=== PATIENT | male | born 1965 ===

== ENCOUNTER 2022-04-28 19:41 | Emergency (ER) | payer BC, SELFPAY ==
--- NOTE | 2022-04-28 20:19 | ED.NURSE ---
Left without being seen. DID NOT sign refusal of services form.
== END 2022-04-28 20:33 | disposition left against medical advice (07) ==
PROVIDERS: PCP Internal Medicine
DX: Z53.21 Procedure and treatment not carried out due to patient leaving prior to being seen by health care provider (principal)
CPT/HCPCS: 99281

== ENCOUNTER 2023-07-31 11:48 | Emergency (ER) | payer BC, SELFPAY ==
[2023-07-31 11:55] VITALS: BP 136/91; PULSE 100; RESP 16; TEMP 36.7; O2SAT 96; BMI 30.5
--- NOTE | 2023-07-31 12:20 | ED.PSYCH ---
HPI - Psych General Time Seen by Provider: 12:20 Date Seen: 07/31/23 Chief Complaint: Psychiatric Problem/Disorder Stated Complaint: Mental health Time Seen by Provider: 07/31/23 12:04 Source: patient and RN notes reviewed Mode of arrival: ambulatory Limitations: no limitations History of Present Illness HPI Narrative: This 58-year-old gentleman is ambulatory into the ED of his own accord with concern of worsening depression, goes by Laurel. He states he started to feel really dark today, thought of cutting again. He has a history of cutting his legs to feel pain per his report. He has not done this for a while, denies doing it today. His dropped him off here at the ER. He reports that she would not wait for him, just is not that kind of and they do not have that relationship. He admits that he has been feeling more depressed over the last month. Told nursing staff he does have bipolar depression. He states he has been on escitalopram 5 mg for years. He notes that he will be fine most the time and then just have these dips where he will feel worse. He does not have a definite suicidal plan. He notes his appetite is diminished and not eating and drinking as well, not sleeping as well. He does like red wine but states he does try to minimize use. He did have 2 drinks last night, had 2 more drinks around 4:00 a.m. today. He sees Dr. Willard at [facility], has a therapist Michael there as well whom he sees. He denies any prior suicide attempts, states he has never been hospitalized for his mental health. Denies any drug use. He notes when he starts feeling like this he will feel different physical symptoms. He has maybe been coughing a bit, note sometimes he will feel numbness tingling in fingertips of both hands. MD complaint: feels depressed Related Data Home Medications Medication Instructions Recorded Confirmed escitalopram oxalate 5 mg tablet 5 mg PO QAM 07/31/23 07/31/23 Previous Rx's Medication Instructions Recorded quetiapine 50 mg tablet (Seroquel) 50 mg PO QHS PRN insomnia #6 tabs 07/31/23 Allergies Allergy/AdvReac Type Severity Reaction Status Date / Time No Known Drug Allergies Allergy Verified 07/31/23 12:02 Review of Systems Status of ROS: Reports: 6 or more systems reviewed and unremarkable except as noted in History and below PFS PFS Social History Smoking Status: Unknown if ever smoked Exam Const: Vital Signs, click to edit/add: Vital Signs - 24 hr 07/31/23 11:55 07/31/23 17:02 Temperature 98.1 F Pulse Rate [Pulse Oximeter] 100 78 Respiratory Rate 16 Blood Pressure [Ri ght Upper Arm] 136/91 H 163/108 H Pulse Oximetry 96 97 Oxygen Delivery Me thod Room Air Room Air This 58-year-old male he is alert and interactive, has good eye contact but certainly has flat affect and depressed mood. He is tearful at times. Pupils are equal round, conjugate gaze. Symmetrical facial function, speech is normal. Neck is supple, no masses, no thyromegaly masses or nodules. Lungs are clear, good air entry, no wheezing or crackles. CV regular rate and rhythm, no murmur, normal S1-S2, no S3-S4. Abdomen is soft, nontender, nondistended, no organomegaly, no masses. He is ambulatory in the ED of his own accord, no lower extremity edema. No focal neurologic deficit noted. Documenting provider has reviewed patient's vital signs: yes Course Course ED Course: Reviewed with patient the process of telehealth evaluation, he does agree to this. We will get a chest x-ray as he has been coughing, do the triple viral swab. He notes no fevers. Will do full complement of labs in case he may require psychiatric hospitalization. Will await to the interview by the telehealth to help us assist in his final disposition. He is voluntary here right now. Reevaluation(s) Time of Reevaluation #1: 14:55 Reevaluation #1: Nursing staff reports that patient is feeling more anxious. Will try oral hydroxyzine to see if this helps him. Nursing staff did offer food and drink which patient declined. He reportedly has completed his interview with telehealth, will call them to see if they have a report ready for us. Time of Reevaluation #2: 16:10 Reevaluation #2: Reviewed his alcohol level, elevated liver enzymes which are very likely from alcoholic hepatitis. This would suggest he has maybe been drinking more than what he has led onto. He is seemingly clinically sober, have had lengthy conversation with him. We did discuss detox, he denies any history of alcoholic withdrawal seizures, no history of alcohol withdrawal. He does note every time he drinks, the next day will feel more jittery and anxious. He endorses sleep being a big issue. He realizes the alcohol makes him feel better is a just dulls how he is feeling. We reviewed that it is not really helpful, likely is worsening his mental health. He is feeling anxious right now, did agree to give him 1 mg oral Ativan. Did discuss sleep aid with him. It sounds as if he has not responded to trazodone in the past. Will try some Seroquel, just dispense a few tablets. He is not felt to need hospitalization by telehealth, he is not endorsing suicidality, homicidality, agree that he is not holdable. Time of Reevaluation #3: 17:11 Reevaluation #3: Nursing staff reported that patient stated when they were going over the discharge summary and they went over if he was feeling increasingly suicidal to return, he made a statement that what if he was feeling that now. I did go back and talk to him. He was causing himself to be very shaky, reviewed with him that he needed to settle down, IA could absolutely tell that he was causing himself to have upper extremity shaking. When I commented on this, he stopped moving his upper extremities. Reviewed with him that we were at a decision point and that if he was not feeling safe to go home, we needed to call telehealth back and look for inpatient psychiatric hospitalization. He does not want to do that, did tell me that he is just afraid to go home as he started feeling quite dark this morning. Reviewed with him that he needed to be the 1 to tell me if he was safer not to go home. We did discuss that if he was feeling worse or increasingly suicidal, the plan was for him to always return for further medical evaluation. He stated he wanted to go home, his was out front waiting for him. I asked him what his plan was if he started to feel worse at home, he stated he was going to come back. I had talked to him before about detox as well, he did not want to do that either. Thus, the plan either needs to be that he tries to go home with the plan as outlined or if he is truly not feeling safe, needs to go inpatient psychiatry. He is not endorsing any active suicidal plan, is just fearful to return home as that he might feel worse. He ultimately is going to do a trial of returning home, if he has increasing suicidal thoughts or worsening depression, he will return here. Consultations Consultation #1: Reviewed with Jose from [employer]. He will interview the patient and contact us back when he has done the interview. Time: 13:15 Consultation #2: Spoke with Jose from [employer]. Patient reported for about 15 years his mood has been up and down but typically can get through it. He reviewed that it had been episodic. Patient does typically exercise and run. Since June 27 he has been more sad and lethargic. He did not think that he would hurt himself. He last cut about 12 years ago and did not think that would be a current issue. Not sleeping was a big problem, would awaken after few hours. He had only been on citalopram 5 mg daily and as Jose and I discussed, if he really did have bipolar disorder, do wonder about this medicine, certainly wonder if it is just depression that this might not be a therapeutic dosage for him. He did not feel that he needed inpatient nor did the patient after they discussed this. He did not feel safe to go home tonight though and Jose discussed with him observation in our hospital overnight and help with sleep. Reviewed with Jose that we do not do this, will check with our hospitalist but they are not psychiatry and he otherwise doesn't have a need for hospitalization here. Did get him outpatient psychiatry appointment for this Tuesday. Did subsequently review with our hospitalist Dr. Castillo and he doesn't accept this patient, doesn't see need for services here that our hospital can provide. Time: 15:06 Vital Signs Vital signs: Initial Vital Signs Temperature 98.1 F 07/31/23 11:55 Temperature Source Temporal Artery Scan 07/31/23 11:55 Pulse Rate 100 07/31/23 11:55 Respiratory Rate 16 07/31/23 11:55 Blood Pressure 136/91 H 07/31/23 11:55 Blood Pressure Mean 106 H 07/31/23 11:55 Blood Pressure Position Sitting 07/31/23 11:55 Pulse Oximetry 96 07/31/23 11:55 Oxygen Delivery Method Room Air 07/31/23 11:55 Vital Signs Temperature 98.1 F 07/31/23 11:55 Pulse Rate 100 07/31/23 11:55 Respiratory Rate 16 07/31/23 11:55 Blood Pressure 136/91 H 07/31/23 11:55 Pulse Oximetry 96 07/31/23 11:55 Oxygen Delivery Method Room Air 07/31/23 11:55 Temperature 98.1 F 07/31/23 11:55 Pulse Rate 78 07/31/23 17:02 Respiratory Rate 16 07/31/23 11:55 Blood Pressure 163/108 H 07/31/23 17:02 Pulse Oximetry 97 07/31/23 17:02 Oxygen Delivery Method Room Air 07/31/23 17:02 Medications Administered Medications: Discontinued Medications Generic Name Dose Route Start Last Admin Trade Name Freq PRN Reason Stop Dose Admin Hydroxyzine Pamoate 50 mg 07/31/23 14:55 07/31/23 14:58 Hydroxyzine Pamoate 25 Mg Capsule PO 07/31/23 14:56 50 mg ONCE ONE Administration Lorazepam 1 mg 07/31/23 16:53 07/31/23 16:58 Lorazepam 1 Mg Tablet PO 07/31/23 16:54 1 mg ONCE ONE Administration MDM - Psych Lab Data Attestation: I reviewed the patient's lab results. Labs: Lab Results 07/31/23 07/31/23 Range/Units 12:45 12:55 WBC 3.59 L (4.50-11.00) K/uL RBC 4.51 (4.30-5.90) m/uL Hgb 14.9 (13.5-17.5) gm/dL Hct 44.3 (37.0-53.0) % MCV 98 (80-100) fL MCH 33 (26-34) pg MCHC 34 (32-36) gm/dL RDW Coeff of Bettina 13.9 (11.5-15.5) % Plt Count 144 (140-440) K/uL Neut % (Auto) 51.3 (42.0-72.0) % Lymph % (Auto) 31.2 (20-44) % Schleicher % (Auto) 12.8 H (0.0-11.0) % Eos % (Auto) 3.1 (0.0-7.0) % Baso % (Auto) 0.8 (0.0-3.0) % Neut # (Auto) 1.80 (1.7-7.0) K/uL Lymph # (Auto) 1.10 (0.90-2.90) K/uL Schleicher # (Auto) 0.50 (0.00-0.90) K/UL Eos # (Auto) 0.10 (0.00-0.50) K/uL Baso # (Auto) 0.00 (0.00-0.30) K/uL Abs Immat Gran (auto) 0.00 (0.00-0.30) K/uL Imm/Tot Granulo (auto) 0.8 % Sodium 137 (135-149) mmol/L Potassium 4.3 (3.6-5.1) mmol/L Chloride 104 (96-114) mmol/L Carbon Dioxide 15 L (20-32) mmol/L Anion Gap 18 H (7-15) mEq/L BUN 8 (7-30) mg/dL Creatinine 0.6 (0.5-1.5) mg/dL Estimated Creat Clear 127.00 Estimated GFR 113 ml/min Glucose 106 (60-115) mg/dL Calcium 9.2 (8.4-10.6) mg/dL Total Bilirubin 0.8 (0.1-1.5) mg/dL AST 281 H (12-35) U/L ALT 302 H (4-50) U/L Alkaline Phosphatase 82 (40-150) U/L Total Protein 7.5 (6.0-8.3) g/dL Albumin 4.4 (3.3-5.0) g/dL TSH 2.600 (0.270-4.200) uIU/mL Salicylates < 1.0 L (1.0-10) mg/dL Acetaminophen < 10.0 L (10.0-30.0) ug/mL Ethyl Alcohol 0.11 H (0.01-0.03) % SARS-CoV-2 (PCR) Negative SARS-CoV-2 (Negative) Influenza Type A (PCR) Negative PCR FLU A (Negative) Influenza Type B (PCR) Negative PCR FLU B (Negative) RSV (PCR) Negative PCR RSV (Negative) Imaging Data Chest x-ray: Attestation: I have reviewed the pertinent imaging results. My impression: I see no acute pathology on my preliminary review of this portable chest x-ray. Radiologist's impression: Patient: TIFFANY BARAHONA Facility:?[facility] Patient ID:?[id number] Site Patient ID:?[id number]. Site :?[id number] Study:?XRay Chest PORTABLE-07/31/2023 12:48:11 PM Ordering Physician:Luma Cifuentes Final Report: INDICATION: Cough. TECHNIQUE: Chest 1 views. COMPARISON: None. FINDINGS: Cardiovasculature and mediastinum: Heart size and vasculature are normal in caliber and appearance. Lungs and pleural spaces: Lungs are clear. No sign of infiltrate or mass. No sign of pleural effusion. No pneumothorax. Bones and soft tissues: No significant findings. IMPRESSION: No acute or significant findings. Dictated by Jose Cheng MD @ 07/31/2023 1:18:21 PM (Electronic Signature) Discharge Plan Discharge Clinical Impression: Alcohol intoxication, Depression Patient Disposition: Home, Self-Care Condition: Stable Instructions: Depression (ED), Alcohol Use Disorder (ED) Additional Instructions: Need to stop alcohol use, this certainly is not helping your depression. Can try the Seroquel as prescribed to help with sleep. You need to keep your scheduled psychiatry appointment that was made through telehealth. I also recommend that you need to get back in clinic within the next week, need to have your liver enzymes rechecked as they are showing changes consistent with alcoholic hepatitis. Continue on the escitalopram as you have been prescribed. As far as your depression, if you feel you are worsening, do feel that your becoming suicidal, you need to seek emergent re-evaluation. Activity Level: Activity as Tolerated Discharge Diet: Regular Prescriptions: New quetiapine [Seroquel] 50 mg tablet 50 mg PO QHS PRN (Reason: insomnia) Qty: 6 0RF No Action escitalopram oxalate 5 mg tablet 5 mg PO QAM Follow Up/Referrals: Bam Roldan MD [Primary Care Provider] - Stand Alone Forms: [employer] Info Instructions
--- NOTE | 2023-07-31 12:34 | CRLHL7_ITS ---
For Patients: As a result of the Century Cures Act, medical imaging exams and procedure reports are released immediately into your electronic medical record. You may view this report before your referring provider. If you have questions, please contact your health care provider. INDICATION: Cough. TECHNIQUE: Chest 1 views. COMPARISON: None. FINDINGS: Cardiovasculature and mediastinum: Heart size and vasculature are normal in caliber and appearance. Lungs and pleural spaces: Lungs are clear. No sign of infiltrate or mass. No sign of pleural effusion. No pneumothorax. Bones and soft tissues: No significant findings. IMPRESSION: No acute or significant findings. Dictated by Jose Cheng MD @ 07/31/2023 1:18:21 PM (Electronically Signed)
[2023-07-31 13:06] LABS: Basophils Percent Auto 0.8 % (0.0-3.0); Eosinophils Percent Auto 3.1 % (0.0-7.0); Hematocrit 44.3 % (37.0-53.0); Hemoglobin* 14.9 gm/dL (13.5-17.5); Immature Granulocytes Pct Auto 0.8 %; Lymphocytes Percent Auto 31.2 % (20-44); Mean Corpuscular HGB Conc 34 gm/dL (32-36); Mean Corpuscular Hemoglobin 33 pg (26-34); Mean Corpuscular Volume 98 fL (80-100); Monocytes Percent Auto 12.8 % (0.0-11.0); Neutrophils Percent Auto 51.3 % (42.0-72.0); Platelet Count* 144 K/uL (140-440); RDW Coefficient of Variation % 13.9 % (11.5-15.5); Red Blood Count 4.51 m/uL (4.30-5.90); White Blood Count* 3.59 K/uL (4.50-11.00)
[2023-07-31 13:08] LABS: Slide Review Reflex No
[2023-07-31 13:44] LABS: PCR FLU A Negative PCR FLU A (Negative); PCR FLU B Negative PCR FLU B (Negative); PCR RSV Negative PCR RSV (Negative); SARS PCR* Negative SARS-CoV-2 (Negative)
[2023-07-31] MEDS: hydrOXYzine pamoate 25 MG CAPSULE 50 MG PO (14:58)
[2023-07-31 15:23] LABS: Albumin* 4.4 g/dL (3.3-5.0); Chloride* 104 mmol/L (96-114)
[2023-07-31 15:24] LABS: Potassium* 4.3 mmol/L (3.6-5.1); Sodium* 137 mmol/L (135-149)
[2023-07-31 15:26] LABS: Alanine Aminotransferase* 302 U/L (4-50); Alkaline Phosphatase* 82 U/L (40-150); Anion Gap 18 mEq/L (7-15); Aspartate Amino Transferase* 281 U/L (12-35); Bilirubin Total* 0.8 mg/dL (0.1-1.5); Blood Urea Nitrogen* 8 mg/dL (7-30); Calcium* 9.2 mg/dL (8.4-10.6); Carbon Dioxide* 15 mmol/L (20-32); Creatinine* 0.6 mg/dL (0.5-1.5); Estimated Glomerular Filt Rate 113 ml/min; Glucose* 106 mg/dL (60-115); Total Protein* 7.5 g/dL (6.0-8.3)
[2023-07-31 15:27] LABS: Acetaminophen* < 10.0 ug/mL (10.0-30.0); Ethanol* 0.11 % (0.01-0.03); Salicylate* < 1.0 mg/dL (1.0-10)
--- NOTE | 2023-07-31 16:51 | ED.NURSE ---
Pt signed DEC safety plan, pt provided with copy of this plan.
[2023-07-31] MEDS: LORazepam 1 MG TABLET PO (16:58)
[2023-07-31 17:02] VITALS: BP 163/108; PULSE 78; O2SAT 97
--- NOTE | 2023-07-31 17:11 | ED.NURSE ---
DC instructions reviewed with pt, pt instructed to come back for reevaluation if he had concerns about his safety or suicidal thoughts. Pt then stated, What if I'm having those thoughts right now? Pt then stated that he was unsure if he would be safe going home. MD powell, in room to speak with pt for several minutes. After speaking with MD, pt did state that he was safe and would be willing to go home. Pt informed several times by health science writer and MD that he should come back to the ER or call 911 if he feels unsafe at home; pt agreeable to this. Pt signed and acknowledged DC instructions before departing.
== END 2023-07-31 17:16 | disposition home or self-care (01) ==
PROVIDERS: Emergency Provider Family Medicine; PCP Internal Medicine
DX: F10.129 Alcohol abuse with intoxication, unspecified (principal); F32.A Depression, unspecified
CPT/HCPCS: 36415; 71045; 80053; 80143; 80179; 80306; 82077; 84443; 85025; 87631; 99284; A9270

== ENCOUNTER 2024-07-10 12:13 | Outpatient (CLI) | payer BC, SELFPAY | END 2024-07-10 12:14 | disposition home or self-care (01) | LOC: AMB 07-25 16:50 | PROVIDERS: PCP Internal Medicine; Visit Provider Emergency Medicine | DX: R56.9 Unspecified convulsions (principal) | CPT/HCPCS: A0425; A0427 ==

== ENCOUNTER 2024-07-10 12:42 | Emergency (ER) | payer BC, SELFPAY ==
[2024-07-10 12:51] VITALS: BP 153/102; PULSE 87; RESP 20; TEMP 37; O2SAT 94; BMI 32.3
--- NOTE | 2024-07-10 12:57 | ED.GENADULT ---
HPI - General Adult General Date Seen: 07/10/24 Chief complaint: Altered Mental Status Stated complaint: Seizure/Anxiety Time Seen by Provider: 07/10/24 12:45 History of Present Illness HPI narrative: Patient is a 59-year-old male brought in by EMS. Medics tell me that bystanders had called 911 because he was in the [place] just sitting in his car and not moving. They thought maybe he had had a stroke or something along those lines. They were reports of maybe some shaking but medics say on their arrival he was awake and not postictal. No reported loss of bowel or bladder control, tongue laceration that sort of thing. No history of seizures. He says he does not remember exactly what happened. When I asked why he is here he said that he has just been struggling with his depression for the past 6 weeks. He says sometimes it is better controlled but he has been having a lot of problems, feeling very down. He denies being suicidal, says he just wishes he could sleep. He does take Lexapro, he also takes Seroquel at night. He has a therapist, he says that who manages his medicines. Of note he has shown as being on 5 mg of Lexapro, which is a fairly small dose. He denies tobacco or drug use. He says he drinks socially. He has been seen here once before, in last July, and there was some suspicion of more excessive alcohol use. He denies that today. Related Data Home Medications ?Medication ?Instructions ?Recorded ?Confirmed escitalopram oxalate 5 mg tablet 5 mg PO QAM 07/31/23 07/10/24 Previous Rx's ?Medication ?Instructions ?Recorded quetiapine 50 mg tablet (Seroquel) 50 mg PO QHS PRN insomnia #6 tabs 07/31/23 Allergies Allergy/AdvReac Type Severity Reaction Status Date / Time No Known Drug Allergies Allergy Verified 05/22/24 15:15 Review of Systems Status of ROS: Reports: 10 or more systems reviewed and unremarkable except as noted in History and below [facility] Medical History Hyperlipidemia ?E78.5 - Hyperlipidemia, unspecified (ICD-10) Social History Smoking Status: Unknown if ever smoked How often do you have a drink containing alcohol: never AUDIT-C Alcohol total score: 0 Non-prescribed substance use: denies use Exam Narrative: Exam Narrative: Vital signs reviewed In general, alert, nontoxic Head: Normocephalic, atraumatic. Eyes: Sclera clear. Pupils equal and reactive. ENT: Mucous membranes moist. Neck: Supple without adenopathy. Heart: Regular rate and rhythm without murmur. Lungs: Clear. No increased work of breathing, crackles or wheezes. Abdomen: Soft, nontender to palpation. Extremities: Well perfused, pulses intact. No significant edema. Neurologic: Alert, conversant. Speech fluent, face symmetric. Moves all extremities equally. Skin: Warm, dry well perfused. Affect: Flat. Const: Vital Signs, click to edit/add: Vital Signs - 24 hr 07/10/24 12:51 07/10/24 13:24 Temperature 98.6 F Pulse Rate 87 Pulse Rate [Pulse Oximeter] 87 Respiratory Rate 20 Blood Pressure 146/97 H Blood Pressure [Ri ght Upper Arm] 153/102 H Pulse Oximetry 94 98 Oxygen Delivery Me thod Room Air Course Course ED Course: Will have him talk with telehealth, check some basic labs and give him a little bit of fluid here as he says he feels a little weak and shaky. It is unclear what this episode was earlier. I am less suspicious of true seizure given the absence of a postictal period. Patient spoke with Janusz, I had a lengthy conversation with him as well. He is a little more clear on things now. He tells me that this event happened after he had gone to his therapist's office. He found that there was a wait list, he was not able to really talk with anyone and this led to anxiety. He says when he gets anxious he gets shaky and he decided that he should not drive because he was shaky. It does not sound like there was any loss of consciousness. He says that this happens to him sometimes. As the anxiety has improved this shakiness is improved, though I note as we start to talk he seems to get shaky again. We reviewed his medications more carefully. He is no longer on Lexapro, he was switched to Wellbutrin last year. He says he was started on a low-dose but now is up to 450 mg a day. He also has hydroxyzine for anxiety which he takes as needed. He is no longer on Seroquel, he reports that it did not help with sleep any way. He says nothing he has ever tried for sleep really helps. He had had some stressors at work, he thinks that that contributed to this episode of depression that started 6 weeks ago. He said that he missed a therapy appointment and a psychiatry appointment because he just could not get himself to leave the house. He does feel like he is starting to improve, he says that he would not have been able to leave the house today if he was not feeling a little better. Continues to denies suicidal thoughts. He did reach out to his psychiatrist and his therapist today, has not heard back from them and I have encouraged him to touch back with them tomorrow if he does not hear from them. I think it is reasonable to let him go home. Laboratory evaluation here was negative. He feels comfortable with that. He knows that he can return any time if things are getting worse. Vital Signs Vital signs: Initial Vital Signs Temperature 98.6 F 07/10/24 12:51 Temperature Source Temporal Artery Scan 07/10/24 12:51 Pulse Rate 87 07/10/24 12:51 Respiratory Rate 07/10/24 12:51 Blood Pressure 153/102 H 07/10/24 12:51 Blood Pressure Mean 119 H 07/10/24 12:51 Pulse Oximetry 94 07/10/24 12:51 Oxygen Delivery Method Room Air 07/10/24 12:51 Vital Signs Temperature 98.6 F 07/10/24 12:51 Pulse Rate 87 07/10/24 12:51 Respiratory Rate 07/10/24 12:51 Blood Pressure 153/102 H 07/10/24 12:51 Pulse Oximetry 94 07/10/24 12:51 Oxygen Delivery Method Room Air 07/10/24 12:51 Temperature 98.6 F 07/10/24 12:51 Pulse Rate 87 07/10/24 13:24 Respiratory Rate 20 07/10/24 12:51 Blood Pressure 146/97 H 07/10/24 13:24 Pulse Oximetry 98 07/10/24 13:24 Oxygen Delivery Method Room Air 07/10/24 12:51 Medications Administered Medications: Discontinued Medications Generic Name Dose Route Start Last Admin Trade Name Freq PRN Reason Stop Dose Admin Sodium Chloride 500 mls @ 500 mls/hr 07/10/24 12:52 07/10/24 13:49 0.9 % Sodium Chloride 500 Ml IV 07/10/24 13:51 Infused .Q1H ONE Infusion Medical Decision Making Lab Data Lab results reviewed: Yes I reviewed the patient's lab results Labs: Lab Results 07/10/24 Range/Units 13:20 WBC 4.73 (4.50-11.00) K/uL RBC 4.61 (4.30-5.90) m/uL Hgb 15.2 (13.5-17.5) gm/dL Hct 44.2 (37.0-53.0) % MCV 96 (80-100) fL MCH 33 (26-34) pg MCHC 34 (32-36) gm/dL RDW Coeff of Bettina 13.6 (11.5-15.5) % Plt Count 199 (140-440) K/uL Neut % (Auto) 82.9 H (42.0-72.0) % Lymph % (Auto) 9.3 L (20-44) % Mcminn % (Auto) 6.6 (0.0-11.0) % Eos % (Auto) 0.2 (0.0-7.0) % Baso % (Auto) 0.6 (0.0-3.0) % Neut # (Auto) 3.90 (1.7-7.0) K/uL Lymph # (Auto) 0.40 L (0.90-2.90) K/uL Mcminn # (Auto) 0.30 (0.00-0.90) K/UL Eos # (Auto) 0.01 (0.00-0.50) K/uL Baso # (Auto) 0.03 (0.00-0.30) K/uL Abs Immat Gran (auto) 0.02 (0.00-0.30) K/uL Imm/Tot Granulo (auto) 0.4 % Sodium 137 (135-149) mmol/L Potassium 3.8 (3.6-5.1) mmol/L Chloride 99 (96-114) mmol/L Carbon Dioxide 25 (20-32) mmol/L Anion Gap 13 (7-15) mEq/L BUN 9 (7-30) mg/dL Creatinine 0.8 (0.5-1.5) mg/dL Estimated Creat Clear 90.83 Estimated GFR 103 ml/min Glucose 198 H (60-115) mg/dL Calcium 9.8 (8.4-10.6) mg/dL Total Bilirubin 1.6 H (0.1-1.5) mg/dL Direct Bilirubin 0.6 H (0.0-0.5) mg/dL AST 60 H (12-35) U/L ALT 72 H (4-50) U/L Alkaline Phosphatase 80 (40-150) U/L Total Protein 8.1 (6.0-8.3) g/dL Albumin 4.9 (3.3-5.0) g/dL Salicylates < 1.0 L (1.0-10) mg/dL Acetaminophen < 10.0 L (10.0-30.0) ug/mL Ethyl Alcohol < 0.00 L (0.01-0.03) % Discharge Plan Discharge Clinical Impression: Depression Patient Disposition: Home, Self-Care Condition: Improved Instructions: Depression (ED) Additional Instructions: Return if needed for more severe symptoms. As discussed, make sure that you touch base with your psychiatrist and therapist, take medications as prescribed. Prescriptions: No Action escitalopram oxalate 5 mg tablet 5 mg PO QAM quetiapine [Seroquel] 50 mg tablet 50 mg PO QHS PRN (Reason: insomnia) Qty: 6 0RF Follow Up/Referrals: aBm Roldan MD [Primary Care Provider] - Stand Alone Forms: [employer] Info Instructions
[2024-07-10] MEDS: 0.9 % SODIUM CHLORIDE 500 ML 500 ML IV (13:23)
[2024-07-10 13:24] VITALS: BP 146/97; PULSE 87; O2SAT 98
[2024-07-10 13:35] LABS: Basophils Absolute Auto 0.03 K/uL (0.00-0.30); Basophils Percent Auto 0.6 % (0.0-3.0); Eosinophils Absolute Auto 0.01 K/uL (0.00-0.50); Eosinophils Percent Auto 0.2 % (0.0-7.0); Hematocrit 44.2 % (37.0-53.0); Hemoglobin* 15.2 gm/dL (13.5-17.5); Immature Granulocytes Abs Auto 0.02 K/uL (0.00-0.30); Immature Granulocytes Pct Auto 0.4 %; Lymphocytes Percent Auto 9.3 % (20-44); Mean Corpuscular HGB Conc 34 gm/dL (32-36); Mean Corpuscular Hemoglobin 33 pg (26-34); Mean Corpuscular Volume 96 fL (80-100); Monocytes Percent Auto 6.6 % (0.0-11.0); Neutrophils Percent Auto 82.9 % (42.0-72.0); Platelet Count* 199 K/uL (140-440); RDW Coefficient of Variation % 13.6 % (11.5-15.5); Red Blood Count 4.61 m/uL (4.30-5.90); White Blood Count* 4.73 K/uL (4.50-11.00)
[2024-07-10 13:38] LABS: Slide Review Reflex No
[2024-07-10 13:48] LABS: Chloride* 99 mmol/L (96-114); Potassium* 3.8 mmol/L (3.6-5.1); Sodium* 137 mmol/L (135-149)
[2024-07-10 13:49] LABS: Albumin* 4.9 g/dL (3.3-5.0)
[2024-07-10 13:51] LABS: Anion Gap 13 mEq/L (7-15); Blood Urea Nitrogen* 9 mg/dL (7-30); Calcium* 9.8 mg/dL (8.4-10.6); Carbon Dioxide* 25 mmol/L (20-32); Creatinine* 0.8 mg/dL (0.5-1.5); Est. Creatinine Clearance* 90.83; Estimated Glomerular Filt Rate 103 ml/min; Glucose* 198 mg/dL (60-115)
[2024-07-10 13:52] LABS: Alanine Aminotransferase* 72 U/L (4-50); Alkaline Phosphatase* 80 U/L (40-150); Aspartate Amino Transferase* 60 U/L (12-35); Bilirubin Direct* 0.6 mg/dL (0.0-0.5); Bilirubin Total* 1.6 mg/dL (0.1-1.5); Total Protein* 8.1 g/dL (6.0-8.3)
[2024-07-10 14:06] LABS: Acetaminophen* < 10.0 ug/mL (10.0-30.0); Salicylate* < 1.0 mg/dL (1.0-10)
[2024-07-10 14:09] LABS: Ethanol* < 0.00 % (0.01-0.03)
== END 2024-07-10 15:40 | disposition home or self-care (01) ==
LOC: ED 14:45
PROVIDERS: Emergency Provider Emergency Medicine; PCP Internal Medicine
DX: F32.A Depression, unspecified (principal)
CPT/HCPCS: 36415; 80048; 80076; 80143; 80179; 80306; 81001; 82077; 85025; 99283; 99284; J7030

== ENCOUNTER 2024-09-07 18:45 | Outpatient (CLI) | payer BC, SELFPAY | END 2024-09-07 18:46 | disposition home or self-care (01) | LOC: AMB 09-10 09:16 | PROVIDERS: PCP Internal Medicine; Visit Provider Family Medicine | DX: R45.851 Suicidal ideations (principal) | CPT/HCPCS: A0425; A0427 ==

== ENCOUNTER 2024-09-07 19:10 | Emergency (ER) | payer BC, SELFPAY ==
--- OUTSIDE RECORDS SUMMARY | 2024-09-07 19:12 | XMS_ITS | Clinical Summary ---
Author Organization [employer] s & [facility] Address [address] [place] [address] Care Team Providers Care Health Information Provider Name Role Phone Kenneth Willard MD Primary Care Provider [phone]- [phone] Allergies No known active allergies Medications QUEtiapine (SEROQUEL) 50 mg tabletIndicatio ns:Insomnia, idiopathic TAKE 1 TABLET BY MOUTH AT BEDTIME NEEDED FOR INSOMNIA 20 Tablet 08/05/2023 Active buPROPion (WELLBUTRIN XL) 150 mg Extended-Releas e tablet Take 300 mg by mouth once daily. 08/03/2023 Active escitalopram oxalate (LEXAPRO) 5 mg tabletIndicatio ns:Anxiety,Saritha r depressive disorder, recurrent, severe without psychotic features (HC) Take 1 Tablet (5 mg) by mouth every morning. 90 Tablet 3 09/02/2023 Active SUMAtriptan (IMITREX) 50 mg tabletIndicatio ns:Migraine syndrome TAKE 1 TABLET (50 MG) BY MOUTH 2 TIMES DAILY IF NEEDED FOR MIGRAINE. GIVE AT MINIMUM 2HRS APART. MAX DOSE: 100MG PER 24HRS. 10 Tablet 05/01/2024 Active Active Problems Problem Noted Date Diagnosed Date Primary osteoarthritis of right knee 07/27/2024 Degenerative tear of medial meniscus, right 06/29 Adenomatous colon polyp 07/20/2017 Overview (11/11/2022): Colonoscopy 06/2017 polyp, repeat in 5 years Colonoscopy 10/2022 diverticulosis, repeat in 7 years Hyperlipidemia 05/18/2013 Major depressive disorder, single episode, unspe cified 04/19/2013 Encounters Date Type Department Care Team Description 09/05/2024 3:15 PM CDT Office Visit [facility] [address] [place] [phone] Sara Patten, PhD, LP Failed Appointment 08/28/2024 Telephone [facility] [address] [facility] [place] [address] Andrae Arciniega MD Pre-Visit Intake 08/02/2024 Telephone [facility] [address] [place] [phone] Sara Patten, PhD, LP Form (Request ) 07/30/2024 Telephone [facility] [address] [place] [address] Andrae Arciniega MD 07/27/2024 11:05 AM BOILER OR ENGINE OPERATOR Ancillary Procedure [facility] [address] [place] [address] 07/27/2024 11:00 AM BOILER OR ENGINE OPERATOR Office Visit [facility] [address] [place] [address] Blane Royal MD Consult (right knee) 07/27/2024 Telephone [facility] [address] [place] [phone] Sara Patten, PhD, LP Form (Working Short Term Disability Claim) 07/27/2024 Travel 07/17/2024 Telephone [facility] [address] [place] [phone] Sara Patten, PhD, LP Letter For Work 07/16/2024 12:00 PM BOILER OR ENGINE OPERATOR Office Visit [facility] [address] [place] [phone] Sara Patten, PhD, LP Individual Therapy 07/16/2024 Telephone [facility] [address] [place] [phone] Sara Patten, PhD, Error-please disregard 07/16/2024 Travel from Last 3 Months Immunizations Immunization Administration Dates Next Due Tdap 04/20/2013 Family History Medical History Relation Name Comments Diabetes Brother Diabetes Father Heart Disease Father [place] in early 60 's Diabetes Sister Cancer-colon No Family History Cancer-prostate No Family History Relation Name Status Comments Brother Father Sister Social History Tobacco Use Types Packs/Day Years Used Date Smoking Tobacco: Never Smokeless Tobacco: Never Tobacco Cessation:Counseling Given: Yes Alcohol Use Standard Drinks/Week Comments Not Currently 4 (1 standard drink = 0.6 oz pur e alcohol) 4 drinks per week PHQ-2 Answer Date Recorded PHQ-2 TOTAL SCORE 3 09/02/2023 Social Connections Answer Date Recorded Do you often feel lonely or isolated from those around you? 4 09/02/2023 Financial Resource Strain Answer Date R ecorded Difficulty of Paying Living Expenses 3 09/02/2023 Difficulty of Paying Living Expenses Not on file 09/02/2023 Food Insecurity Answer Date Recorded Do you worry your food will run out before you are able to buy more? 1 09/02/2023 Transportation Needs Answer Date Record ed Does lack of transportation keep you from medica l appointments? 1 09/02/2023 Does lack of transportation keep you from work, meetings or getting things that you need? 1 09/02/2023 Housing Stability Answer Date Recorded What is your housing situation today? 1 09/02/2023 Utilities Answer Date Recorded Do you have trouble paying f or utilities (for example, heat, electricity, water, phone)? 1 09/02/2023 Sex and Gender Information Value Date Recorded Sex Assigned at Not on file Legal Sex Male 5:27 AM BOILER OR ENGINE OPERATOR Gender Identity Not on file Sexual Orientation Not on file Obstetrics History Last Filed Vital Signs Vital Sign Reading Time Taken Comments Blood Pressure 158/95 12/23/2023 1:14 PM CDT Pulse 68 12/23/2023 1:14 PM CDT Temperature 36.8 C (98.3 F) 07/25/2020 4:24 PM BOILER OR ENGINE OPERATOR Respiratory Rate 12 11/11/2022 9:45 AM CDT Oxygen Saturation 99% 12/23/2023 1:14 PM CDT Inhaled Oxygen Concentration - - Weight 95.3 kg (210 lb) 12/23/2023 1:14 PM CDT Height 167.6 cm (5' 6) 12/23/2023 1:14 PM CDT Body Mass Index 33.89 12/23/2023 1:14 PM CDT Plan of Treatment Health Maintenance Due Date Last Done Comments Pneumococcal series for age 50+ (1 of 1 - PCV) 2016 Zoster (shingles) series for age 50+ (1 of 2) 2016 Tetanus booster 04/20/2023 04/20/2013 COVID-19 vaccine series (1 - 2023- season) 2024 Influenza Vaccine (#1) 2024 Depression screening for age 12+ 09/01/2024 09/02/2023, 08/05/2023, 08/04/2023, Additional history exists BMI (ht and wt on same day) for age 18+ 12/22/2024 12/23/2023, 09/02/2023, 08/09/2022, Additional history exists Lipids for age 45-75 08/31/2028 09/01/2023, 08/09/2022, 08/07/2021, Additional history exists Colonoscopy through age 75 11/11/202911/11, 11/11/2022, 11/11/2022, Additional history exists Tdap Completed 04/20/2013 Hepatitis C screening for ag e 18-79 Completed 06/05/2018 HIV for age 15-65 Completed 08/09/2022 Procedures Procedure Name Priority Date/Time Associated Diagnosis Comments XR KNEE 1 VIEW RIGHT Routine 07/27/2024 10:59 AM BOILER OR ENGINE OPERATOR Right knee pain, unspecified chronicity LIPID PANEL W REFLEX MEASURED LDL Routine 09/01/2023 9:57 AM BOILER OR ENGINE OPERATOR Hyperlipidemia, unspecified hyperlipidemia type COLONOSCOPY SCREENING Routine 11/11/2022 8:38 AM CDT History of colon polyps LC HIV-1/O/2, 4TH GENERATION Routine 08/09/2022 10:38 AM BOILER OR ENGINE OPERATOR Screening for HIV (human immunodeficiency virus) ANTI HCV Routine 06/05/2018 10:55 AM BOILER OR ENGINE OPERATOR Elevated liver enzymes from Last 3 Months or Most Recently Relevant to Health Maintenance Results * XR KNEE 1 VIEW RIGHT (07/27/2024 10:59 AM BOILER OR ENGINE OPERATOR) Anatomical Region Laterality Modality KNEE R Computed Radiogr aphy 07/27/2024 11:0 7 AM BOILER OR ENGINE OPERATOR Narrative 07/27/2024 11:07 AM BOILER OR ENGINE OPERATOR For Patients: As a result of the Cures Act, medical imaging exams and procedure reports are released immediately into your electronic medical record. You may view this report before your referring provider. If you have questions, please contact your health care provider. INDICATION: Chronic right knee pain. TECHNIQUE: Single Conrad view of the right knee. COMPARISON: 12/23/2023. FINDINGS: Medial compartment narrowing, widening of the lateral compartment with varus angulation. Mild osteoarthritic spurring at the articular margins. No subarticular lytic bone destruction or architectural distortion. Dictated by Davina Borrero MD @ 07/27/2024 11:07:53 AM (Electronically Signed) Procedure Note Sanket Borrero MD - 07/27/2024 For Patients: As a result of the Cures Act, medical imagingexams and procedure reports are released immediately into your electronicmedical record. You may view this report before your referring provider.If you have questions, please contact your health care provider. INDICATION: Chronic right knee pain. TECHNIQUE: Single Conrad view of the right knee. COMPARISON: 12/23/2023. FINDINGS: Medial compartment narrowing, widening of the lateral compartment withvarus angulation. Mild osteoarthritic spurring at the articular margins.No subarticular lytic bone destruction or architectural distortion. Dictated by Davina Borrero MD @ 07/27/2024 11:07:53 AM (Electronically Signed) Blane Royal MD GENERAL IMAGING Final Resul t * (ABNORMAL) LIPID PANEL W REFLEX MEASURED LDL (09/01/2023 9:57 AM BOILER OR ENGINE OPERATOR) CHOLESTEROL,TOTAL 246(H) 100 - 199 mg/dL 09/01/2023 6:30 PM BOILER OR ENGINE OPERATOR [facility] Comment: Cholesterol, Total Reference Ranges Desirable <200 mg/dL Borderline 200-239 mg/dL High >=240 mg/dL TRIGLYCERIDES 42 <150 mg/dL 09/01/2023 6:30 PM BOILER OR ENGINE OPERATOR [facility] HDL CHOLESTEROL 70 >40 mg/dL 6:30 PM BOILER OR ENGINE OPERATOR [facility] NON-HDL CHOLESTEROL 176(H) <145 mg/dl 09/01/2023 6:30 PM BOILER OR ENGINE OPERATOR [facility] CHOL/HDL RATIO 3.51 <4.50 09/01/2023 6:30 PM BOILER OR ENGINE OPERATOR [facility] LDL CHOLESTEROL 168(H) <=130 mg/dL 09/01/2023 6:30 PM BOILER OR ENGINE OPERATOR [facility] VLDL CHOLESTEROL 8 <=30 mg/dL 09/01/2023 6:30 PM BOILER OR ENGINE OPERATOR [facility] PROVIDER ORDERED STATUS RANDOM 09/01/2023 6:30 PM BOILER OR ENGINE OPERATOR [facility] Blood BLOOD SPECIMEN / Unknown Venipuncture / Unknown 09/01/2023 9:57 AM BOILER OR ENGINE OPERATOR 09/01/2023 9:59 AM BOILER OR ENGINE OPERATOR us Kenneth Willard MD CHEMISTRY Final Resu lt [facility] [address] [place] [address], [place] * COLONOSCOPY (11/11/2022 8:49 AM CDT) 11/11/2022 8:49 AM CDT Narrative Transcriptions Pablo Trujillo MD - 11/11/2022 9:34 AM CDT Patient Name: Ivan Jeffers Procedure Date: 11/11/2022 Gender: Male Date of : 1965 Admit Type: Outpatient Procedure: Colonoscopy Proceduralist: Pablo Trujillo MD , Nishi Chance (Nurse), Yana oCrdova (Nurse) Referring MD: Kenneth Willard Indications/Pre-Op Diagnosis: High risk colon cancer surveillance:Personal history of adenoma less than 10 mm in size Medications: Fentanyl 100 micrograms IV, Midazolam 2 mgIV, The level of sedation administered wasmoderate Procedure Description: The patient had risks, benefits and alternatives explained to andgave informed consent. The patient had a stable cardiopulmonary status and judged an adequate candidate for conscious sedation. The [id number] was passed through the anus and advanced to the cecum, identified by appendiceal orifice and ileocecal valve. Thecolonoscopy was performed without difficulty. The patient tolerated the procedure well. The quality of the bowel preparation was good. The ileocecal valve, appendiceal orifice, and rectum were photographed. Complications: No immediate complications. Estimated Blood Loss & Specimen: Estimated blood loss: none. Specimen collected - None Findings: The perianal and digital rectal examinations were normal. Scattered small-mouthed diverticula were found in the sigmoidcolon. The exam was otherwise without abnormality on direct and retroflexion views. Impressions/Post-Op Diagnosis: - Diverticulosis in the sigmoid colon. - The examination was otherwise normal on direct and retroflexionviews. - No specimens collected. Recommendation: - Patient has a contact number available for emergencies. The signsand symptoms of potential delayed complications were discussed with the patient. Return to normal activities tomorrow. Written discharge instructions were provided to the patient. - Resume previous diet. - Continue present medications. - Repeat colonoscopy in 7 years for surveillance. Moderate Sedation: A time out was performed before the procedure. Moderate (conscious) sedation was administered by the endoscopy nurse and supervised bythe endoscopist. The following parameters were monitored: oxygensaturation, heart rate, blood pressure, EKG, CO2, respiratory rate, adequacy of pulmonary ventilation and reponse to care. Please refer to the patient's medical record flowsheets and nursing notes for moderate sedation details. Total physician intraservice time was 13 minutes. Pablo Trujillo MD 11/11/2022 9:34:18 AM This report has been signed electronically. Note Initiated On: 11/11/2022 8:49 AM Procedure Code(s): --- Professional --- 03422, Colonoscopy, flexible; diagnostic, including collection of specimen(s) bybrushing or washing, when performed (separateprocedure) Diagnosis Code(s): --- Professional --- Z86.010, Personal history of colonicpolyps K57.30, Diverticulosis of large intestine without perforation or abscess withoutbleeding CPT copyright 2021 [employer]. All rights reserved. The codes documented in this report are preliminary and upon pairer substandard reviewmay be revised to meet current compliance requirements. Scope In: 9:17:24 AM Scope Withdrawal Time 0 hours 6 minutes 37 seconds Scope Out: 9:28:14 AM us Pablo Trujillo MD PROCEDURE ORD Final Res ult * LC HIV-1/O/2, 4TH GENERATION (08/09/2022 10:38 AM BOILER OR ENGINE OPERATOR) HIV Scr 4th Gen Non Reactive Non Reactive 08/11/2022 10:06 PM [facility] Comment: HIV Negative HIV-1/HIV-2 antibodies and HIV-1 p24 antigen were NOT detected. There is no laboratory evidence of HIV infection. Blood BLOOD SPECIMEN / Unknown Venipuncture / Unknown 08/09/2022 10:38 AM BOILER OR ENGINE OPERATOR 08/09/2022 10:40 AM BOILER OR ENGINE OPERATOR Narrative [facility] - 08/11/2022 10:06 PM BOILER OR ENGINE OPERATOR Performed at: [address] [place] [id number] Tile Professional: Hernán Rodriguez MD, Phone: [phone] us Kenneth Willard MD LABORATORY Final Resu lt [facility] [address] [place] [address], * ANTI HCV (06/05/2018 10:55 AM BOILER OR ENGINE OPERATOR) HEPATITIS C ANTIBODY Non-React lazarus Non-React lazarus 06/06/2018 2:46 PM BOILER OR ENGINE OPERATOR [facility] Comment:Antibodies to HCV no t detected; does not exclude the possibility of exposure to HCV. Blood BLOOD SPECIMEN / Unknown Venipuncture / Unknown 06/05/2018 10:55 AM BOILER OR ENGINE OPERATOR 06/05/2018 10:55 AM BOILER OR ENGINE OPERATOR us Kenneth Willard MD SEND OUTS Final Resu lt [facility] [address] [place] [address], from Last 3 Months or Most Recently Relevant to Health Maintenance Insurance [facility] Care Teams Health Information Provider Relationship Specialty Start Date End Date Kenneth [place] [place] [address] PCP - General Family Practice 05/13/14
[2024-09-07 19:19] VITALS: BP 140/86; PULSE 89; RESP 16; TEMP 36.7; O2SAT 94
--- OUTSIDE RECORDS SUMMARY | 2024-09-07 19:43 | XMS_ITS | Clinical Summary ---
Author Organization [employer] [facility] [employer] [facility] Address [address] [place] [address] Care Team Providers Care Rn Resource Nurse Name Role Phone Kenneth Willard MD Primary Care Provider +1- [phone] Allergies No known active allergies Medications QUEtiapine [...] Description 09/05/2024 3:15 PM CDT Office Visit [facility] [address] [place] [phone] Sara Patten, PhD, LP Failed Appointment 08/28/2024 Telephone [facility] [address] [place] [address] Andrae Arciniega MD Pre-Visit Intake 08/02/2024 Telephone [facility] [address] [place] [phone] Sara Patten, PhD, LP Form (Request ) 07/30/2024 Telephone [facility] [address] [place] [address] Andrae Arciniega MD 07/27/2024 11:05 AM DATA COLLECTION TECHNICIAN Ancillary Procedure [facility] [address] [place] [address] 07/27/2024 11:00 AM DATA COLLECTION TECHNICIAN Office Visit [facility] [address] [facility] [place] [address] Blane Royal MD Consult (right knee) 07/27/2024 Telephone [facility] [address] [place] [phone] Sara Patten, PhD, LP Form (Working Short Term Disability Claim) 07/27/2024 Travel 07/17/2024 Telephone [facility] [address] [place] [phone] Sara Patten, PhD, LP Letter For Work 07/16/2024 12:00 PM DATA COLLECTION TECHNICIAN Office Visit [facility] [address] [place] [phone] Sara Patten, PhD, LP Individual Therapy 07/16/2024 Telephone [facility] [address] [place] [phone] Sara Patten, PhD, Error-please disregard 07/16/2024 Travel from Last 3 Months Immunizations Immunization Administration Dates Next Due Tdap 04/20/2013 Family History Medical History Relation Name Comments Diabetes Brother Diabetes Father Heart Disease Father [place] in early 60 's Diabetes Sister Cancer-colon [...] on file Legal Sex Male 5:27 AM DATA COLLECTION TECHNICIAN Gender Identity Not on file Sexual Orientation Not on file Obstetrics History Last Filed Vital Signs Vital Sign Reading Time Taken Comments Blood Pressure 158/95 12/23/2023 1:14 PM CDT Pulse 68 12/23/2023 1:14 PM CDT Temperature 36.8 C (98.3 F) 07/25/2020 4:24 PM DATA COLLECTION TECHNICIAN Respiratory Rate 12 11/11/2022 9:45 AM CDT [...] 1 VIEW RIGHT Routine 07/27/2024 10:59 AM DATA COLLECTION TECHNICIAN Right knee pain, unspecified chronicity LIPID PANEL W REFLEX MEASURED LDL Routine 09/01/2023 9:57 AM DATA COLLECTION TECHNICIAN Hyperlipidemia, unspecified hyperlipidemia type COLONOSCOPY SCREENING Routine 11/11/2022 8:38 AM CDT History of colon polyps LC HIV-1/O/2, 4TH GENERATION Routine 08/09/2022 10:38 AM DATA COLLECTION TECHNICIAN Screening for HIV (human immunodeficiency virus) ANTI HCV Routine 06/05/2018 10:55 AM DATA COLLECTION TECHNICIAN Elevated liver enzymes from Last 3 Months or Most Recently Relevant to Health Maintenance Results * XR KNEE 1 VIEW RIGHT (07/27/2024 10:59 AM DATA COLLECTION TECHNICIAN) Anatomical Region Laterality Modality KNEE R Computed Radiogr aphy 07/27/2024 11:0 7 AM DATA COLLECTION TECHNICIAN Narrative 07/27/2024 11:07 AM DATA COLLECTION TECHNICIAN For Patients: As a result of the [...] W REFLEX MEASURED LDL (09/01/2023 9:57 AM DATA COLLECTION TECHNICIAN) CHOLESTEROL,TOTAL 246(H) 100 - 199 mg/dL 09/01/2023 6:30 PM DATA COLLECTION TECHNICIAN [facility] Comment: Cholesterol, Total Reference Ranges Desirable <200 mg/dL Borderline 200-239 mg/dL High >=240 mg/dL TRIGLYCERIDES 42 <150 mg/dL 09/01/2023 6:30 PM DATA COLLECTION TECHNICIAN [facility] HDL CHOLESTEROL 70 >40 mg/dL 6:30 PM DATA COLLECTION TECHNICIAN [facility] NON-HDL CHOLESTEROL 176(H) <145 mg/dl 09/01/2023 6:30 PM DATA COLLECTION TECHNICIAN [facility] CHOL/HDL RATIO 3.51 <4.50 09/01/2023 6:30 PM DATA COLLECTION TECHNICIAN [facility] LDL CHOLESTEROL 168(H) <=130 mg/dL 09/01/2023 6:30 PM DATA COLLECTION TECHNICIAN [facility] VLDL CHOLESTEROL 8 <=30 mg/dL 09/01/2023 6:30 PM DATA COLLECTION TECHNICIAN [facility] PROVIDER ORDERED STATUS RANDOM 09/01/2023 6:30 PM DATA COLLECTION TECHNICIAN [facility] Blood BLOOD SPECIMEN / Unknown Venipuncture / Unknown 09/01/2023 9:57 AM DATA COLLECTION TECHNICIAN 09/01/2023 9:59 AM DATA COLLECTION TECHNICIAN us Kenneth Willard MD CHEMISTRY Final Resu lt [facility] [address] [place] [address], [place] * COLONOSCOPY (11/11/2022 8:49 AM CDT) 11/11/2022 8:49 AM CDT Narrative Transcriptions Pablo Trujillo MD - 11/11/2022 9:34 AM CDT Patient Name: Ivan Jeffers Procedure Date: 11/11/2022 Gender: Male Date of : 1965 Admit Type: Outpatient Procedure: Colonoscopy Proceduralist: Pablo Trujillo MD , Nishi Chance (Nurse), Yana Cordova (Nurse) Referring MD: Kenneth Willard Indications/Pre-Op Diagnosis: [...] an adequate candidate for conscious sedation. The [id number] was passed through the anus and advanced [...] 8:49 AM Procedure Code(s): --- Professional --- 36188, Colonoscopy, flexible; diagnostic, including collection of specimen(s) bybrushing or washing, when performed (separateprocedure) Diagnosis Code(s): --- Professional --- Z86.010, Personal history of colonicpolyps K57.30, Diverticulosis of large intestine without perforation or abscess withoutbleeding CPT copyright 2021 [employer]. All rights reserved. The codes documented in this report are preliminary and upon clinic lead reviewmay be revised to meet current compliance requirements. Scope In: 9:17:24 AM Scope Withdrawal Time 0 hours 6 minutes 37 seconds Scope Out: 9:28:14 AM us Pablo Trujillo MD PROCEDURE ORD Final Res ult * LC HIV-1/O/2, 4TH GENERATION (08/09/2022 10:38 AM DATA COLLECTION TECHNICIAN) HIV Scr 4th Gen Non Reactive Non Reactive 08/11/2022 10:[address] [facility] Comment: HIV Negative HIV-1/HIV-2 antibodies and HIV-1 p24 antigen were NOT detected. There is no laboratory evidence of HIV infection. Blood BLOOD SPECIMEN / Unknown Venipuncture / Unknown 08/09/2022 10:38 AM DATA COLLECTION TECHNICIAN 08/09/2022 10:40 AM DATA COLLECTION TECHNICIAN Narrative [facility] ([facility] - 08/11/2022 10:06 PM DATA COLLECTION TECHNICIAN Performed at: [address] [place] [id number] Front Desk Coordinator: Hernán Rodriguez MD, Phone: [phone] us Kenneth Willard MD LABORATORY Final Resu lt [facility] [address] [place] [address], * ANTI HCV (06/05/2018 10:55 AM DATA COLLECTION TECHNICIAN) HEPATITIS C ANTIBODY Non-React lazarus Non-React lazarus 06/06/2018 2:46 PM DATA COLLECTION TECHNICIAN [facility] Comment:Antibodies to HCV no t detected; does not exclude the possibility of exposure to HCV. Blood BLOOD SPECIMEN / Unknown Venipuncture / Unknown 06/05/2018 10:55 AM DATA COLLECTION TECHNICIAN 06/05/2018 10:55 AM DATA COLLECTION TECHNICIAN us Kenneth Willard MD SEND OUTS Final Resu lt [facility] [address] [place] [address], from Last 3 Months or Most Recently Relevant to Health Maintenance Insurance [facility] Care Teams Rn Resource Nurse Relationship Specialty Start Date End Date Kenneth Willard [place] [address] PCP - General Family Practice 05/13/14
--- NOTE | 2024-09-07 19:46 | ED.GENADULT ---
HPI - General Adult General Chief complaint: Psychiatric Problem/Disorder <Vane Sibley MD - Last Filed: 09/09/24 15:02> Stated complaint: Mental health <Vane Sibley MD - Last Filed: 09/09/24 15:02> Time Seen by Provider: 09/07/24 19:15 <Vane Sibley MD - Last Filed: 09/09/24 15:02> Source: patient <Vane Sibley MD - Last Filed: 09/09/24 15:02> Mode of arrival: ambulatory <Vane Sibley MD - Last Filed: 09/09/24 15:02> Limitations: no limitations <Vane Sibley MD - Last Filed: 09/09/24 15:02> History of Present Illness HPI narrative: 59-year-old male presenting today with suicidal ideation. Patient states he has been dealing with increased depression over the last 6-8 weeks or so. States that 2 days ago he wanted to kill himself by stabbing himself in the chest with a knife but his took away all the knives. He states that now his plan is to get a hotel room inject himself with heroin. He states that he is having trouble at work he feels unappreciated any feels worthless. He states that he is tired of dealing with depression feeling like this he does not want to go on anymore. Did drink 4 beers today, denies other drug use today. <Vane Sibley MD - Last Filed: 09/09/24 15:02> Related Data Home medications: Home Medications ?Medication ?Instructions ?Recorded ?Confirmed escitalopram oxalate 5 mg tablet 5 mg PO QAM 07/31/23 07/10/24 bupropion HCl 300 mg 24 hr tablet, 300 mg PO DAILY 09/08/24 09/08/24 extended release hydroxyzine HCl 25 mg tablet 25 mg PO BID PRN anxiety 09/08/24 09/08/24 Previous Rx's ?Medication ?Instructions ?Recorded quetiapine 50 mg tablet (Seroquel) 50 mg PO QHS PRN insomnia #6 tabs 07/31/23 <Vane Sibley MD - Last Filed: 09/09/24 15:02> Allergies/adverse reactions: Allergies Allergy/AdvReac Type Severity Reaction Status Date / Time No Known Drug Allergies Allergy Verified 05/22/24 15:15 <Vane Sibley MD - Last Filed: 09/09/24 15:02> Review of Systems Status of ROS: Reports: 10 or more systems reviewed and unremarkable except as noted in History and below <Vane Sibley MD - Last Filed: 09/09/24 15:02> [facility] Medical History: Medical History Hyperlipidemia ?E78.5 - Hyperlipidemia, unspecified (ICD-10) <Vane Sibley MD - Last Filed: 09/09/24 15:02> Social History: Social History Smoking Status: Unknown if ever smoked How often do you have a drink containing alcohol: never AUDIT-C Alcohol total score: 0 Non-prescribed substance use: denies use service: No <Vane Sibley MD - Last Filed: 09/09/24 15:02> Exam Narrative: Exam Narrative: Well-nourished well-developed patient, tearful. Alert and oriented. Answers questions appropriately. Patient is sad and tearful. Thoughts are goal oriented and rational. No tangential or magical thinking noted. Patient speaks in full sentences without needing to catch his breath. HEENT: Normocephalic atraumatic. Pupils are equally round reactive to light. Extraocular muscles are intact. Conjunctivae are moist, glassy, without any icterus noted. Moist mucous membranes. Posterior pharynx is normal. Neck is soft. Cardiovascular: Heart is regular rate and rhythm S1 and S2 are present without any murmurs. Lungs: Clear to auscultation bilaterally no wheezes rhonchi or rales are appreciated. Patient takes deep breaths without any discomfort. Abdomen: Soft and nontender nondistended with normal bowel sounds. Extremities: Bilateral lower extremities are without edema. Skin: Well perfused without any obvious rashes. <Vane Sibley MD - Last Filed: 09/09/24 15:02> Const: Vital Signs, click to edit/add: Vital Signs - 24 hr 09/08/24 15:05 09/08/24 15:07 09/08/24 15:15 Temperature Pulse Rate 91 88 Pulse Rate [Pulse Oximeter] 86 Pulse Rate [Right Pulse Oximeter] Respiratory Rate 16 Blood Pressure 129/80 Blood Pressure [Ri ght Upper Arm] Pulse Oximetry 94 95 Oxygen Delivery Me thod Room Air 09/08/24 15:30 09/08/24 15:31 09/08/24 15:51 Temperature Pulse Rate 96 97 96 Pulse Rate [Pulse Oximeter] Pulse Rate [Right Pulse Oximeter] Respiratory Rate Blood Pressure 116/81 Blood Pressure [Ri ght Upper Arm] Pulse Oximetry 94 95 95 Oxygen Delivery Me thod 09/08/24 16:00 09/08/24 16:01 09/08/24 16:15 Temperature Pulse Rate 88 91 86 Pulse Rate [Pulse Oximeter] Pulse Rate [Right Pulse Oximeter] Respiratory Rate Blood Pressure 177/133 H Blood Pressure [Ri ght Upper Arm] Pulse Oximetry 95 95 94 Oxygen Delivery Me thod 09/08/24 16:20 09/08/24 16:30 09/08/24 16:32 Temperature Pulse Rate 87 95 87 Pulse Rate [Pulse Oximeter] Pulse Rate [Right Pulse Oximeter] Respiratory Rate Blood Pressure 139/99 H 138/93 H Blood Pressure [Ri ght Upper Arm] Pulse Oximetry 95 80 L 95 Oxygen Delivery Me thod 09/08/24 16:45 09/08/24 17:34 09/08/24 18:27 Temperature Pulse Rate 111 H 102 H Pulse Rate [Pulse Oximeter] Pulse Rate [Right Pulse Oximeter] Respiratory Rate Blood Pressure 152/93 H Blood Pressure [Ri ght Upper Arm] Pulse Oximetry 93 95 Oxygen Delivery Me thod 09/08/24 18:28 09/08/24 18:30 09/08/24 18:31 Temperature Pulse Rate 101 H 95 92 Pulse Rate [Pulse Oximeter] Pulse Rate [Right Pulse Oximeter] Respiratory Rate Blood Pressure Blood Pressure [Ri ght Upper Arm] Pulse Oximetry 95 96 95 Oxygen Delivery Me thod 09/08/24 18:45 09/08/24 19:00 09/08/24 19:01 Temperature Pulse Rate 96 88 89 Pulse Rate [Pulse Oximeter] Pulse Rate [Right Pulse Oximeter] Respiratory Rate Blood Pressure 135/83 Blood Pressure [Ri ght Upper Arm] Pulse Oximetry 95 95 94 Oxygen Delivery Me thod 09/08/24 19:15 09/08/24 19:30 09/08/24 19:31 Temperature Pulse Rate 99 98 Pulse Rate [Pulse Oximeter] Pulse Rate [Right Pulse Oximeter] Respiratory Rate Blood Pressure 114/71 Blood Pressure [Ri ght Upper Arm] Pulse Oximetry 94 97 Oxygen Delivery Me thod 09/08/24 19:45 09/08/24 20:00 09/08/24 20:02 Temperature Pulse Rate 86 83 84 Pulse Rate [Pulse Oximeter] Pulse Rate [Right Pulse Oximeter] Respiratory Rate Blood Pressure 136/87 Blood Pressure [Ri ght Upper Arm] Pulse Oximetry 96 95 94 Oxygen Delivery Me thod 09/08/24 20:03 09/08/24 21:43 09/08/24 21:44 Temperature Pulse Rate 83 93 90 Pulse Rate [Pulse Oximeter] Pulse Rate [Right Pulse Oximeter] Respiratory Rate Blood Pressure 127/67 Blood Pressure [Ri ght Upper Arm] Pulse Oximetry 94 95 95 Oxygen Delivery Me thod 09/08/24 21:45 09/09/24 09:30 Temperature 98.6 F Pulse Rate 87 Pulse Rate [Pulse Oximeter] Pulse Rate [Right Pulse Oximeter] 84 Respiratory Rate 18 Blood Pressure Blood Pressure [Ri ght Upper Arm] 130/84 Pulse Oximetry 95 Oxygen Delivery Me thod <Vane Sibley MD - Last Filed: 09/09/24 15:02> Vital Signs, click to edit/add: Vital Signs - 24 hr 09/08/24 15:05 09/08/24 15:07 09/08/24 15:15 Temperature Pulse Rate 91 88 Pulse Rate [Pulse Oximeter] 86 Pulse Rate [Right Pulse Oximeter] Respiratory Rate 16 Blood Pressure 129/80 Blood Pressure [Ri ght Upper Arm] Pulse Oximetry 94 95 Oxygen Delivery Me thod Room Air 09/08/24 15:30 09/08/24 15:31 09/08/24 15:51 Temperature Pulse Rate 96 97 96 Pulse Rate [Pulse Oximeter] Pulse Rate [Right Pulse Oximeter] Respiratory Rate Blood Pressure 116/81 Blood Pressure [Ri ght Upper Arm] Pulse Oximetry 94 95 95 Oxygen Delivery Me thod 09/08/24 16:00 09/08/24 16:01 09/08/24 16:15 Temperature Pulse Rate 88 91 86 Pulse Rate [Pulse Oximeter] Pulse Rate [Right Pulse Oximeter] Respiratory Rate Blood Pressure 177/133 H Blood Pressure [Ri ght Upper Arm] Pulse Oximetry 95 95 94 Oxygen Delivery Me thod 09/08/24 16:20 09/08/24 16:30 09/08/24 16:32 Temperature Pulse Rate 87 95 87 Pulse Rate [Pulse Oximeter] Pulse Rate [Right Pulse Oximeter] Respiratory Rate Blood Pressure 139/99 H 138/93 H Blood Pressure [Ri ght Upper Arm] Pulse Oximetry 95 80 L 95 Oxygen Delivery Me thod 09/08/24 16:45 09/08/24 17:34 09/08/24 18:27 Temperature Pulse Rate 111 H 102 H Pulse Rate [Pulse Oximeter] Pulse Rate [Right Pulse Oximeter] Respiratory Rate Blood Pressure 152/93 H Blood Pressure [Ri ght Upper Arm] Pulse Oximetry 93 95 Oxygen Delivery Me thod 09/08/24 18:28 09/08/24 18:30 09/08/24 18:31 Temperature Pulse Rate 101 H 95 92 Pulse Rate [Pulse Oximeter] Pulse Rate [Right Pulse Oximeter] Respiratory Rate Blood Pressure Blood Pressure [Ri ght Upper Arm] Pulse Oximetry 95 96 95 Oxygen Delivery Me thod 09/08/24 18:45 09/08/24 19:00 09/08/24 19:01 Temperature Pulse Rate 96 88 89 Pulse Rate [Pulse Oximeter] Pulse Rate [Right Pulse Oximeter] Respiratory Rate Blood Pressure 135/83 Blood Pressure [Ri ght Upper Arm] Pulse Oximetry 95 95 94 Oxygen Delivery Me thod 09/08/24 19:15 09/08/24 19:30 09/08/24 19:31 Temperature Pulse Rate 99 98 Pulse Rate [Pulse Oximeter] Pulse Rate [Right Pulse Oximeter] Respiratory Rate Blood Pressure 114/71 Blood Pressure [Ri ght Upper Arm] Pulse Oximetry 94 97 Oxygen Delivery Me thod 09/08/24 19:45 09/08/24 20:00 09/08/24 20:02 Temperature Pulse Rate 86 83 84 Pulse Rate [Pulse Oximeter] Pulse Rate [Right Pulse Oximeter] Respiratory Rate Blood Pressure 136/87 Blood Pressure [Ri ght Upper Arm] Pulse Oximetry 96 95 94 Oxygen Delivery Me thod 09/08/24 20:03 09/08/24 21:43 09/08/24 21:44 Temperature Pulse Rate 83 93 90 Pulse Rate [Pulse Oximeter] Pulse Rate [Right Pulse Oximeter] Respiratory Rate Blood Pressure 127/67 Blood Pressure [Ri ght Upper Arm] Pulse Oximetry 94 95 95 Oxygen Delivery Me thod 09/08/24 21:45 09/09/24 09:30 Temperature 98.6 F Pulse Rate 87 Pulse Rate [Pulse Oximeter] Pulse Rate [Right Pulse Oximeter] 84 Respiratory Rate 18 Blood Pressure Blood Pressure [Ri ght Upper Arm] 130/84 Pulse Oximetry 95 Oxygen Delivery Me thod <Mirtha Farmer MD - Last Filed: 09/09/24 08:24> Vital Signs, click to edit/add: Vital Signs - 24 hr 09/08/24 15:05 09/08/24 15:07 09/08/24 15:15 Temperature Pulse Rate 91 88 Pulse Rate [Pulse Oximeter] 86 Pulse Rate [Right Pulse Oximeter] Respiratory Rate 16 Blood Pressure 129/80 Blood Pressure [Ri ght Upper Arm] Pulse Oximetry 94 95 Oxygen Delivery Me thod Room Air 09/08/24 15:30 09/08/24 15:31 09/08/24 15:51 Temperature Pulse Rate 96 97 96 Pulse Rate [Pulse Oximeter] Pulse Rate [Right Pulse Oximeter] Respiratory Rate Blood Pressure 116/81 Blood Pressure [Ri ght Upper Arm] Pulse Oximetry 94 95 95 Oxygen Delivery Me thod 09/08/24 16:00 09/08/24 16:01 09/08/24 16:15 Temperature Pulse Rate 88 91 86 Pulse Rate [Pulse Oximeter] Pulse Rate [Right Pulse Oximeter] Respiratory Rate Blood Pressure 177/133 H Blood Pressure [Ri ght Upper Arm] Pulse Oximetry 95 95 94 Oxygen Delivery Me thod 09/08/24 16:20 09/08/24 16:30 09/08/24 16:32 Temperature Pulse Rate 87 95 87 Pulse Rate [Pulse Oximeter] Pulse Rate [Right Pulse Oximeter] Respiratory Rate Blood Pressure 139/99 H 138/93 H Blood Pressure [Ri ght Upper Arm] Pulse Oximetry 95 80 L 95 Oxygen Delivery Me thod 09/08/24 16:45 09/08/24 17:34 09/08/24 18:27 Temperature Pulse Rate 111 H 102 H Pulse Rate [Pulse Oximeter] Pulse Rate [Right Pulse Oximeter] Respiratory Rate Blood Pressure 152/93 H Blood Pressure [Ri ght Upper Arm] Pulse Oximetry 93 95 Oxygen Delivery Me thod 09/08/24 18:28 09/08/24 18:30 09/08/24 18:31 Temperature Pulse Rate 101 H 95 92 Pulse Rate [Pulse Oximeter] Pulse Rate [Right Pulse Oximeter] Respiratory Rate Blood Pressure Blood Pressure [Ri ght Upper Arm] Pulse Oximetry 95 96 95 Oxygen Delivery Me thod 09/08/24 18:45 09/08/24 19:00 09/08/24 19:01 Temperature Pulse Rate 96 88 89 Pulse Rate [Pulse Oximeter] Pulse Rate [Right Pulse Oximeter] Respiratory Rate Blood Pressure 135/83 Blood Pressure [Ri ght Upper Arm] Pulse Oximetry 95 95 94 Oxygen Delivery Me thod 09/08/24 19:15 09/08/24 19:30 09/08/24 19:31 Temperature Pulse Rate 99 98 Pulse Rate [Pulse Oximeter] Pulse Rate [Right Pulse Oximeter] Respiratory Rate Blood Pressure 114/71 Blood Pressure [Ri ght Upper Arm] Pulse Oximetry 94 97 Oxygen Delivery Me thod 09/08/24 19:45 09/08/24 20:00 09/08/24 20:02 Temperature Pulse Rate 86 83 84 Pulse Rate [Pulse Oximeter] Pulse Rate [Right Pulse Oximeter] Respiratory Rate Blood Pressure 136/87 Blood Pressure [Ri ght Upper Arm] Pulse Oximetry 96 95 94 Oxygen Delivery Me thod 09/08/24 20:03 09/08/24 21:43 09/08/24 21:44 Temperature Pulse Rate 83 93 90 Pulse Rate [Pulse Oximeter] Pulse Rate [Right Pulse Oximeter] Respiratory Rate Blood Pressure 127/67 Blood Pressure [Ri ght Upper Arm] Pulse Oximetry 94 95 95 Oxygen Delivery Me thod 09/08/24 21:45 09/09/24 09:30 Temperature 98.6 F Pulse Rate 87 Pulse Rate [Pulse Oximeter] Pulse Rate [Right Pulse Oximeter] 84 Respiratory Rate 18 Blood Pressure Blood Pressure [Ri ght Upper Arm] 130/84 Pulse Oximetry 95 Oxygen Delivery Me thod <Cleopatra Curran MD - Last Filed: 09/08/24 08:36> Course Course ED Course: Mental health assessment was ordered. Labs were drawn: CBC showed a low white cell count at 2.78, hemoglobin 15.4 and thrombocytopenia and 98,000. Normal sodium and potassium. LFTs are elevated with an AST of 199, ALT of 161, total bili of 1.6. UA is unremarkable. Urine drug screen is negative. Negative for salicylates and acetaminophen. COVID influenza negative. Of note, a D-dimer was mistakenly ordered and was elevated at 2.87. Patient is not complaining of feeling short of breath. He does not have any chest pain. He is not tachycardic or hypoxic. Nonspecific finding, will not pursue further imaging at this time. Blood alcohol returned quite elevated at 0.32. IV established and 1 L of normal saline ordered. Mental health evaluation was done and the all parties in agreement that patient is currently suicidal and requires inpatient hospitalization. Upon further conversation patient states that he has had alcohol withdrawal symptoms before, question probable seizure. Therefore CIWA protocol was initiated and patient received 1 mg of Ativan. <Vane Sibley MD - Last Filed: 09/09/24 15:02> Mental health assessment was ordered. Labs were drawn: CBC showed a low white cell count at 2.78, hemoglobin 15.4 and thrombocytopenia and 98,000. Normal sodium and potassium. LFTs are elevated with an AST of 199, ALT of 161, total bili of 1.6. UA is unremarkable. Urine drug screen is negative. Negative for salicylates and acetaminophen. COVID influenza negative. Of note, a D-dimer was mistakenly ordered and was elevated at 2.87. Patient is not complaining of feeling short of breath. He does not have any chest pain. He is not tachycardic or hypoxic. Nonspecific finding, will not pursue further imaging at this time. Blood alcohol returned quite elevated at 0.32. IV established and 1 L of normal saline ordered. Mental health evaluation was done and the all parties in agreement that patient is currently suicidal and requires inpatient hospitalization. Upon further conversation patient states that he has had alcohol withdrawal symptoms before, question probable seizure. Therefore CIWA protocol was initiated and patient received 1 mg of Ativan. <Cleopatra Curran MD - Last Filed: 09/08/24 08:36> Reevaluation(s) Time of Reevaluation #1: 03:43 <Mirtha Farmer MD - Last Filed: 09/09/24 08:24> Reevaluation #1: Nursing team reporting that patient is having increased shakiness and signs of alcohol withdrawal. He had a single dose of Ativan from previous provider but no additional p.r.n. orders had been given. No history of seizures. Will give a bolus of phenobarbital 260 mg IV x1 to help with withdrawal symptoms, this will be more prolonged dose since we do tend to run out of Ativan pretty easily and quickly with alcohol withdrawal patient is in hour rule ED. I have also ordered some p.r.n. oral Ativan if needed. No severe agitation or hallucinations. -Dr. Farmer 0800- we did not have the phenobarbital unfortunately. I did give him 65 mg with the hopes that this would reduce his chance of agitation somewhat has. He has not had as much shakiness. I observed him ambulating to the bathroom and he did well with this. Vitals have remained stable. Alcohol level was drawn as requested at 6:00 a.m. and is coming down nicely but is not to goal level get. Repeat alcohol level has been ordered for noon. Apparently per a [facility] is still considering excepting patient this morning with elevated alcohol level. Will hand over care to incoming day shift partner. <Mirtha Farmer MD - Last Filed: 09/09/24 08:24> Time of Reevaluation #2: 08:35 <Cleopatra Curran MD - Last Filed: 09/08/24 08:36> Reevaluation #2: Accepted by [facility], hold signed. <Cleopatra Curran MD - Last Filed: 09/08/24 08:36> Time of Reevaluation #3: 08:23 <Mirtha Farmer MD - Last Filed: 09/09/24 08:24> Reevaluation #3: Dr. Farmer- patient only required 2 mg of oral Ativan in the last 24 hours. Not showing much for alcohol withdrawal now. He is eating and drinking and calm. He has been accepted to [facility] and will transfer this morning after the ambulance crew returns from a more critical medical transfer. Vitals have remained stable. I did not have any reason to week patient and interact overnight, nursing updates only. <Mirtha Farmer MD - Last Filed: 09/09/24 08:24> Vital Signs Vital signs: Initial Vital Signs Temperature 98.0 F 09/07/24 19:19 Temperature Source Temporal Artery Scan 09/07/24 19:19 Pulse Rate 89 09/07/24 19:19 Pulse Rhythm Regular 09/07/24 19:19 Respiratory Rate 16 09/07/24 19:19 Blood Pressure 140/86 H 09/07/24 19:19 Blood Pressure Mean 104 09/07/24 19:19 Blood Pressure Position Sitting 09/07/24 19:19 Pulse Oximetry 94 09/07/24 19:19 Oxygen Delivery Method Room Air 09/07/24 19:19 Vital Signs Temperature 98.0 F 09/07/24 19:19 Pulse Rate 89 09/07/24 19:19 Respiratory Rate 16 09/07/24 19:19 Blood Pressure 140/86 H 09/07/24 19:19 Pulse Oximetry 94 09/07/24 19:19 Oxygen Delivery Method Room Air 09/07/24 19:19 Temperature 98.6 F 09/09/24 09:30 Pulse Rate 84 09/09/24 09:30 Respiratory Rate 18 09/09/24 09:30 Blood Pressure 130/84 09/09/24 09:30 Pulse Oximetry 95 09/08/24 21:45 Oxygen Delivery Method Room Air 09/08/24 15:05 Oxygen Flow Rate 2 09/08/24 00:12 <Vane Sibley MD - Last Filed: 09/09/24 15:02> Initial Vital Signs Temperature 98.0 F 09/07/24 19:19 Temperature Source Temporal Artery Scan 09/07/24 19:19 Pulse Rate 89 09/07/24 19:19 Pulse Rhythm Regular 09/07/24 19:19 Respiratory Rate 16 09/07/24 19:19 Blood Pressure 140/86 H 09/07/24 19:19 Blood Pressure Mean 104 09/07/24 19:19 Blood Pressure Position Sitting 09/07/24 19:19 Pulse Oximetry 94 09/07/24 19:19 Oxygen Delivery Method Room Air 09/07/24 19:19 Vital Signs Temperature 98.0 F 09/07/24 19:19 Pulse Rate 89 09/07/24 19:19 Respiratory Rate 16 09/07/24 19:19 Blood Pressure 140/86 H 09/07/24 19:19 Pulse Oximetry 94 09/07/24 19:19 Oxygen Delivery Method Room Air 09/07/24 19:19 Temperature 98.6 F 09/09/24 09:30 Pulse Rate 84 09/09/24 09:30 Respiratory Rate 18 09/09/24 09:30 Blood Pressure 130/84 09/09/24 09:30 Pulse Oximetry 95 09/08/24 21:45 Oxygen Delivery Method Room Air 09/08/24 15:05 Oxygen Flow Rate 2 09/08/24 00:12 <Mirtha Farmer MD - Last Filed: 09/09/24 08:24> Initial Vital Signs Temperature 98.0 F 09/07/24 19:19 Temperature Source Temporal Artery Scan 09/07/24 19:19 Pulse Rate 89 09/07/24 19:19 Pulse Rhythm Regular 09/07/24 19:19 Respiratory Rate 16 09/07/24 19:19 Blood Pressure 140/86 H 09/07/24 19:19 Blood Pressure Mean 104 09/07/24 19:19 Blood Pressure Position Sitting 09/07/24 19:19 Pulse Oximetry 94 09/07/24 19:19 Oxygen Delivery Method Room Air 09/07/24 19:19 Vital Signs Temperature 98.0 F 09/07/24 19:19 Pulse Rate 89 09/07/24 19:19 Respiratory Rate 16 09/07/24 19:19 Blood Pressure 140/86 H 09/07/24 19:19 Pulse Oximetry 94 09/07/24 19:19 Oxygen Delivery Method Room Air 09/07/24 19:19 Temperature 98.6 F 09/09/24 09:30 Pulse Rate 84 09/09/24 09:30 Respiratory Rate 18 09/09/24 09:30 Blood Pressure 130/84 09/09/24 09:30 Pulse Oximetry 95 09/08/24 21:45 Oxygen Delivery Method Room Air 09/08/24 15:05 Oxygen Flow Rate 2 09/08/24 00:12 <Cleopatra Curran MD - Last Filed: 09/08/24 08:36> Medications Administered Medications: Discontinued Medications Generic Name Dose Route Start Last Admin Trade Name Freq PRN Reason Stop Dose Admin Escitalopram Oxalate 5 mg 09/08/24 09:00 09/09/24 08:32 Escitalopram 10 Mg Tablet PO 5 mg DAILY RUBEN Administration Sodium Chloride 1,000 mls @ 1,000 mls/hr 09/07/24 21:00 09/07/24 23:30 0.9 % Sodium Chloride 1000 Ml IV 09/07/24 21:59 Infused .Q1H RUBEN Infusion Phenobarbital 260 mg/ Sodium 104 mls @ 208 mls/hr 09/08/24 03:39 09/08/24 04:07 Chloride IVPB 09/08/24 03:40 Not Given ONCE ONE Phenobarbital 65 mg/ Sodium 101 mls @ 202 mls/hr 09/08/24 04:04 09/08/24 05:32 Chloride IVPB 09/08/24 04:05 Infused ONCE ONE Infusion Dextrose/Sodium Chloride 1,000 mls @ 125 mls/hr 09/08/24 13:47 09/09/24 02:47 5 % Dextrose/0.45% Sod Chlor IV Infused .Q8H RUBEN Infusion Thiamine HCl 250 mg/ Sodium 102.5 mls @ 102.5 mls/hr 09/08/24 13:48 09/09/24 02:47 Chloride IVPB 09/08/24 13:49 Infused ONCE ONE Infusion Magnesium Sulfate 2 gm in 50 mls @ 25 mls/hr 09/08/24 14:53 09/09/24 02:47 Magnesium Iv IVPB 09/08/24 16:52 Infused ONCE ONE Infusion Lorazepam 1 mg 09/07/24 22:44 09/07/24 23:43 Lorazepam 2 Mg/Ml Inj IVP 09/07/24 22:45 1 mg ONCE ONE Administration Lorazepam 1 - 2 mg 09/08/24 03:39 09/09/24 03:53 Lorazepam 1 Mg Tablet PO 1 mg Q1H PRN Administration Alcohol Withdrawal Lorazepam 1 mg 09/08/24 04:05 09/08/24 04:13 Lorazepam 2 Mg/Ml Inj IVP 09/08/24 04:06 1 mg ONCE ONE Administration Lorazepam 1 mg 09/08/24 13:47 09/08/24 19:42 Lorazepam 2 Mg/Ml Inj IVP 1 mg Q2H PRN Administration Ondansetron HCl 4 mg 09/08/24 13:47 09/08/24 14:26 Ondansetron 2 Mg/Ml Inj IVP 09/08/24 13:48 4 mg ONCE ONE Administration Ondansetron HCl 4 mg 09/08/24 17:38 09/08/24 17:42 Ondansetron 2 Mg/Ml Inj IVP 09/08/24 17:39 4 mg ONCE ONE Administration Quetiapine Fumarate 50 mg 09/08/24 21:00 09/08/24 21:46 Quetiapine 25 Mg Tablet PO 50 mg HS RUBEN Administration <Vane Sibley MD - Last Filed: 09/09/24 15:02> Discontinued Medications Generic Name Dose Route Start Last Admin Trade Name Jesseeq PRN Reason Stop Dose Admin Escitalopram Oxalate 5 mg 09/08/24 09:00 09/09/24 08:32 Escitalopram 10 Mg Tablet PO 5 mg DAILY RUBEN Administration Sodium Chloride 1,000 mls @ 1,000 mls/hr 09/07/24 21:00 09/07/24 23:30 0.9 % Sodium Chloride 1000 Ml IV 09/07/24 21:59 Infused .Q1H RUBEN Infusion Phenobarbital 260 mg/ Sodium 104 mls @ 208 mls/hr 09/08/24 03:39 09/08/24 04:07 Chloride IVPB 09/08/24 03:40 Not Given ONCE ONE Phenobarbital 65 mg/ Sodium 101 mls @ 202 mls/hr 09/08/24 04:04 09/08/24 05:32 Chloride IVPB 09/08/24 04:05 Infused ONCE ONE Infusion Dextrose/Sodium Chloride 1,000 mls @ 125 mls/hr 09/08/24 13:47 09/09/24 02:47 5 % Dextrose/0.45% Sod Chlor IV Infused .Q8H RUBEN Infusion Thiamine HCl 250 mg/ Sodium 102.5 mls @ 102.5 mls/hr 09/08/24 13:48 09/09/24 02:47 Chloride IVPB 09/08/24 13:49 Infused ONCE ONE Infusion Magnesium Sulfate 2 gm in 50 mls @ 25 mls/hr 09/08/24 14:53 09/09/24 02:47 Magnesium Iv IVPB 09/08/24 16:52 Infused ONCE ONE Infusion Lorazepam 1 mg 09/07/24 22:44 09/07/24 23:43 Lorazepam 2 Mg/Ml Inj IVP 09/07/24 22:45 1 mg ONCE ONE Administration Lorazepam 1 - 2 mg 09/08/24 03:39 09/09/24 03:53 Lorazepam 1 Mg Tablet PO 1 mg Q1H PRN Administration Alcohol Withdrawal Lorazepam 1 mg 09/08/24 04:05 09/08/24 04:13 Lorazepam 2 Mg/Ml Inj IVP 09/08/24 04:06 1 mg ONCE ONE Administration Lorazepam 1 mg 09/08/24 13:47 09/08/24 19:42 Lorazepam 2 Mg/Ml Inj IVP 1 mg Q2H PRN Administration Ondansetron HCl 4 mg 09/08/24 13:47 09/08/24 14:26 Ondansetron 2 Mg/Ml Inj IVP 09/08/24 13:48 4 mg ONCE ONE Administration Ondansetron HCl 4 mg 09/08/24 17:38 09/08/24 17:42 Ondansetron 2 Mg/Ml Inj IVP 09/08/24 17:39 4 mg ONCE ONE Administration Quetiapine Fumarate 50 mg 09/08/24 21:00 09/08/24 21:46 Quetiapine 25 Mg Tablet PO 50 mg HS RUBEN Administration <Mirtha Farmer MD - Last Filed: 09/09/24 08:24> Discontinued Medications Generic Name Dose Route Start Last Admin Trade Name Freq PRN Reason Stop Dose Admin Escitalopram Oxalate 5 mg 09/08/24 09:00 09/09/24 08:32 Escitalopram 10 Mg Tablet PO 5 mg DAILY RUBEN Administration Sodium Chloride 1,000 mls @ 1,000 mls/hr 09/07/24 21:00 09/07/24 23:30 0.9 % Sodium Chloride 1000 Ml IV 09/07/24 21:59 Infused .Q1H RUBEN Infusion Phenobarbital 260 mg/ Sodium 104 mls @ 208 mls/hr 09/08/24 03:39 09/08/24 04:07 Chloride IVPB 09/08/24 03:40 Not Given ONCE ONE Phenobarbital 65 mg/ Sodium 101 mls @ 202 mls/hr 09/08/24 04:04 09/08/24 05:32 Chloride IVPB 09/08/24 04:05 Infused ONCE ONE Infusion Dextrose/Sodium Chloride 1,000 mls @ 125 mls/hr 09/08/24 13:47 09/09/24 02:47 5 % Dextrose/0.45% Sod Chlor IV Infused .Q8H RUBEN Infusion Thiamine HCl 250 mg/ Sodium 102.5 mls @ 102.5 mls/hr 09/08/24 13:48 09/09/24 02:47 Chloride IVPB 09/08/24 13:49 Infused ONCE ONE Infusion Magnesium Sulfate 2 gm in 50 mls @ 25 mls/hr 09/08/24 14:53 09/09/24 02:47 Magnesium Iv IVPB 09/08/24 16:52 Infused ONCE ONE Infusion Lorazepam 1 mg 09/07/24 22:44 09/07/24 23:43 Lorazepam 2 Mg/Ml Inj IVP 09/07/24 22:45 1 mg ONCE ONE Administration Lorazepam 1 - 2 mg 09/08/24 03:39 09/09/24 03:53 Lorazepam 1 Mg Tablet PO 1 mg Q1H PRN Administration Alcohol Withdrawal Lorazepam 1 mg 09/08/24 04:05 09/08/24 04:13 Lorazepam 2 Mg/Ml Inj IVP 09/08/24 04:06 1 mg ONCE ONE Administration Lorazepam 1 mg 09/08/24 13:47 09/08/24 19:42 Lorazepam 2 Mg/Ml Inj IVP 1 mg Q2H PRN Administration Ondansetron HCl 4 mg 09/08/24 13:47 09/08/24 14:26 Ondansetron 2 Mg/Ml Inj IVP 09/08/24 13:48 4 mg ONCE ONE Administration Ondansetron HCl 4 mg 09/08/24 17:38 09/08/24 17:42 Ondansetron 2 Mg/Ml Inj IVP 09/08/24 17:39 4 mg ONCE ONE Administration Quetiapine Fumarate 50 mg 09/08/24 21:00 09/08/24 21:46 Quetiapine 25 Mg Tablet PO 50 mg HS RUBEN Administration <Cleopatra Curran MD - Last Filed: 09/08/24 08:36> Medical Decision Making Lab Data Labs: Lab Results 09/07/24 09/07/24 09/07/24 Range/Units 19:45 20:05 20:05 WBC 2.78 L (4.50-11.00) K/uL RBC 4.74 (4.30-5.90) m/uL Hgb 15.4 (13.5-17.5) gm/dL Hct 43.8 (37.0-53.0) % MCV 92 (80-100) fL MCH 33 (26-34) pg MCHC 35 (32-36) gm/dL RDW Coeff of Bettina 13.7 (11.5-15.5) % Plt Count 98 L (140-440) K/uL Neut % (Auto) 55.8 (42.0-72.0) % Lymph % (Auto) 29.1 (20-44) % Elliott % (Auto) 11.5 H (0.0-11.0) % Eos % (Auto) 1.8 (0.0-7.0) % Baso % (Auto) 1.4 (0.0-3.0) % Neut # (Auto) 1.60 L (1.7-7.0) K/uL Lymph # (Auto) 0.80 L (0.90-2.90) K/uL Elliott # (Auto) 0.30 (0.00-0.90) K/UL Eos # (Auto) 0.10 (0.00-0.50) K/uL Baso # (Auto) 0.00 (0.00-0.30) K/uL Abs Immat Gran (auto) 0.00 (0.00-0.30) K/uL Imm/Tot Granulo (auto) 0.4 % D-Dimer Quant (PE/DVT) 2.87 H (0.00-0.50) ug/ml Sodium 135 (135-149) mmol/L Potassium 3.6 (3.6-5.1) mmol/L Chloride 97 (96-114) mmol/L Carbon Dioxide 21 (20-32) mmol/L Anion Gap 17 H (7-15) mEq/L BUN 5 L (7-30) mg/dL Creatinine 0.6 (0.5-1.5) mg/dL Estimated GFR 112 ml/min Glucose 110 (60-115) mg/dL Calcium 8.7 (8.4-10.6) mg/dL Magnesium (1.5-2.6) mg/dL Total Bilirubin 1.6 H (0.1-1.5) mg/dL Direct Bilirubin 0.7 H (0.0-0.5) mg/dL AST 199 H (12-35) U/L ALT 161 H (4-50) U/L Alkaline Phosphatase 96 (40-150) U/L Total Protein 7.8 (6.0-8.3) g/dL Albumin 4.6 (3.3-5.0) g/dL TSH 2.370 (0.270-4.20) uIU/mL Urine Color Yellow (Yellow) Urine Appearance Clear (Clear) Urine pH 6.5 (5.0-8.5) Ur Specific [place] 1.010 (1.000-1.030) Urine Protein Negative (Negative) Urine Glucose (UA) Negative (Negative) Urine Ketones Negative (Negative) Urine Blood Negative (Negative) Urine Nitrite Negative (Negative) Urine Bilirubin Negative (Negative) Urine Urobilinogen 1.0 (0.2-1.0) Ur Leukocyte Esterase Negative (Negative) Urine RBC 0-2 (0-2) Urine WBC 0-2 (0-5) Ur Squamous Epith Cells None (None-Few) Urine Bacteria None (None) Salicylates < 1.0 L Cancelled (1.0-10) mg/dL Urine Opiates Screen Negative (Negative) Ur Oxycodone Screen Negative (Negative) Urine Methadone Screen Negative (Negative) Acetaminophen < 10.0 L (10.0-30.0) ug/mL Ur Barbiturates Screen Negative (Negative) U Tricyclic Antidepress Negative (Negative) Ur Phencyclidine Scrn Negative (Negative) Ur Amphetamines Screen Negative (Negative) U Methamphetamines Scrn Negative (Negative) U Benzodiazepines Scrn Negative (Negative) Urine Cocaine Screen Negative (Negative) U Marijuana (THC) Screen Negative (Negative) Ur Drug Screen Comment See Note Ethyl Alcohol 0.32 H* (0.01-0.03) % SARS-CoV-2 (PCR) Negative SARS-CoV-2 (Negative) Influenza Type A (PCR) Negative PCR FLU A (Negative) Influenza Type B (PCR) Negative PCR FLU B (Negative) 09/08/24 09/08/24 09/08/24 Range/Units 06:33 12:00 13:15 WBC (4.50-11.00) K/uL RBC (4.30-5.90) m/uL Hgb (13.5-17.5) gm/dL Hct (37.0-53.0) % MCV (80-100) fL MCH (26-34) pg MCHC (32-36) gm/dL RDW Coeff of Bettina (11.5-15.5) % Plt Count (140-440) K/uL Neut % (Auto) (42.0-72.0) % Lymph % (Auto) (20-44) % Elliott % (Auto) (0.0-11.0) % Eos % (Auto) (0.0-7.0) % Baso % (Auto) (0.0-3.0) % Neut # (Auto) (1.7-7.0) K/uL Lymph # (Auto) (0.90-2.90) K/uL Elliott # (Auto) (0.00-0.90) K/UL Eos # (Auto) (0.00-0.50) K/uL Baso # (Auto) (0.00-0.30) K/uL Abs Immat Gran (auto) (0.00-0.30) K/uL Imm/Tot Granulo (auto) % D-Dimer Quant (PE/DVT) (0.00-0.50) ug/ml Sodium (135-149) mmol/L Potassium (3.6-5.1) mmol/L Chloride (96-114) mmol/L Carbon Dioxide (20-32) mmol/L Anion Gap (7-15) mEq/L BUN (7-30) mg/dL Creatinine (0.5-1.5) mg/dL Estimated GFR ml/min Glucose (60-115) mg/dL Calcium (8.4-10.6) mg/dL Magnesium 1.6 (1.5-2.6) mg/dL Total Bilirubin (0.1-1.5) mg/dL Direct Bilirubin (0.0-0.5) mg/dL AST (12-35) U/L ALT (4-50) U/L Alkaline Phosphatase (40-150) U/L Total Protein (6.0-8.3) g/dL Albumin (3.3-5.0) g/dL TSH (0.270-4.20) uIU/mL Urine Color (Yellow) Urine Appearance (Clear) Urine pH (5.0-8.5) Ur Specific [place] (1.000-1.030) Urine Protein (Negative) Urine Glucose (UA) (Negative) Urine Ketones (Negative) Urine Blood (Negative) Urine Nitrite (Negative) Urine Bilirubin (Negative) Urine Urobilinogen (0.2-1.0) Ur Leukocyte Esterase (Negative) Urine RBC (0-2) Urine WBC (0-5) Ur Squamous Epith Cells (None-Few) Urine Bacteria (None) Salicylates (1.0-10) mg/dL Urine Opiates Screen (Negative) Ur Oxycodone Screen (Negative) Urine Methadone Screen (Negative) Acetaminophen (10.0-30.0) ug/mL Ur Barbiturates Screen (Negative) U Tricyclic Antidepress (Negative) Ur Phencyclidine Scrn (Negative) Ur Amphetamines Screen (Negative) U Methamphetamines Scrn (Negative) U Benzodiazepines Scrn (Negative) Urine Cocaine Screen (Negative) U Marijuana (THC) Screen (Negative) Ur Drug Screen Comment Ethyl Alcohol 0.14 H 0.02 (0.01-0.03) % SARS-CoV-2 (PCR) (Negative) Influenza Type A (PCR) (Negative) Influenza Type B (PCR) (Negative) <Vane Sibley MD - Last Filed: 09/09/24 15:02> Lab Results 09/07/24 09/07/24 09/07/24 Range/Units 19:45 20:05 20:05 WBC 2.78 L (4.50-11.00) K/uL RBC 4.74 (4.30-5.90) m/uL Hgb 15.4 (13.5-17.5) gm/dL Hct 43.8 (37.0-53.0) % MCV 92 (80-100) fL MCH 33 (26-34) pg MCHC 35 (32-36) gm/dL RDW Coeff of Bettina 13.7 (11.5-15.5) % Plt Count 98 L (140-440) K/uL Neut % (Auto) 55.8 (42.0-72.0) % Lymph % (Auto) 29.1 (20-44) % Elliott % (Auto) 11.5 H (0.0-11.0) % Eos % (Auto) 1.8 (0.0-7.0) % Baso % (Auto) 1.4 (0.0-3.0) % Neut # (Auto) 1.60 L (1.7-7.0) K/uL Lymph # (Auto) 0.80 L (0.90-2.90) K/uL Elliott # (Auto) 0.30 (0.00-0.90) K/UL Eos # (Auto) 0.10 (0.00-0.50) K/uL Baso # (Auto) 0.00 (0.00-0.30) K/uL Abs Immat Gran (auto) 0.00 (0.00-0.30) K/uL Imm/Tot Granulo (auto) 0.4 % D-Dimer Quant (PE/DVT) 2.87 H (0.00-0.50) ug/ml Sodium 135 (135-149) mmol/L Potassium 3.6 (3.6-5.1) mmol/L Chloride 97 (96-114) mmol/L Carbon Dioxide 21 (20-32) mmol/L Anion Gap 17 H (7-15) mEq/L BUN 5 L (7-30) mg/dL Creatinine 0.6 (0.5-1.5) mg/dL Estimated GFR 112 ml/min Glucose 110 (60-115) mg/dL Calcium 8.7 (8.4-10.6) mg/dL Magnesium (1.5-2.6) mg/dL Total Bilirubin 1.6 H (0.1-1.5) mg/dL Direct Bilirubin 0.7 H (0.0-0.5) mg/dL AST 199 H (12-35) U/L ALT 161 H (4-50) U/L Alkaline Phosphatase 96 (40-150) U/L Total Protein 7.8 (6.0-8.3) g/dL Albumin 4.6 (3.3-5.0) g/dL TSH 2.370 (0.270-4.20) uIU/mL Urine Color Yellow (Yellow) Urine Appearance Clear (Clear) Urine pH 6.5 (5.0-8.5) Ur Specific [place] 1.010 (1.000-1.030) Urine Protein Negative (Negative) Urine Glucose (UA) Negative (Negative) Urine Ketones Negative (Negative) Urine Blood Negative (Negative) Urine Nitrite Negative (Negative) Urine Bilirubin Negative (Negative) Urine Urobilinogen 1.0 (0.2-1.0) Ur Leukocyte Esterase Negative (Negative) Urine RBC 0-2 (0-2) Urine WBC 0-2 (0-5) Ur Squamous Epith Cells None (None-Few) Urine Bacteria None (None) Salicylates < 1.0 L Cancelled (1.0-10) mg/dL Urine Opiates Screen Negative (Negative) Ur Oxycodone Screen Negative (Negative) Urine Methadone Screen Negative (Negative) Acetaminophen < 10.0 L (10.0-30.0) ug/mL Ur Barbiturates Screen Negative (Negative) U Tricyclic Antidepress Negative (Negative) Ur Phencyclidine Scrn Negative (Negative) Ur Amphetamines Screen Negative (Negative) U Methamphetamines Scrn Negative (Negative) U Benzodiazepines Scrn Negative (Negative) Urine Cocaine Screen Negative (Negative) U Marijuana (THC) Screen Negative (Negative) Ur Drug Screen Comment See Note Ethyl Alcohol 0.32 H* (0.01-0.03) % SARS-CoV-2 (PCR) Negative SARS-CoV-2 (Negative) Influenza Type A (PCR) Negative PCR FLU A (Negative) Influenza Type B (PCR) Negative PCR FLU B (Negative) 09/08/24 09/08/24 09/08/24 Range/Units 06:33 12:00 13:15 WBC (4.50-11.00) K/uL RBC (4.30-5.90) m/uL Hgb (13.5-17.5) gm/dL Hct (37.0-53.0) % MCV (80-100) fL MCH (26-34) pg MCHC (32-36) gm/dL RDW Coeff of Bettina (11.5-15.5) % Plt Count (140-440) K/uL Neut % (Auto) (42.0-72.0) % Lymph % (Auto) (20-44) % Elliott % (Auto) (0.0-11.0) % Eos % (Auto) (0.0-7.0) % Baso % (Auto) (0.0-3.0) % Neut # (Auto) (1.7-7.0) K/uL Lymph # (Auto) (0.90-2.90) K/uL [place] # (Auto) (0.00-0.90) K/UL Eos # (Auto) (0.00-0.50) K/uL Baso # (Auto) (0.00-0.30) K/uL Abs Immat Gran (auto) (0.00-0.30) K/uL Imm/Tot Granulo (auto) % D-Dimer Quant (PE/DVT) (0.00-0.50) ug/ml Sodium (135-149) mmol/L Potassium (3.6-5.1) mmol/L Chloride (96-114) mmol/L Carbon Dioxide (20-32) mmol/L Anion Gap (7-15) mEq/L BUN (7-30) mg/dL Creatinine (0.5-1.5) mg/dL Estimated GFR ml/min Glucose (60-115) mg/dL Calcium (8.4-10.6) mg/dL Magnesium 1.6 (1.5-2.6) mg/dL Total Bilirubin (0.1-1.5) mg/dL Direct Bilirubin (0.0-0.5) mg/dL AST (12-35) U/L ALT (4-50) U/L Alkaline Phosphatase (40-150) U/L Total Protein (6.0-8.3) g/dL Albumin (3.3-5.0) g/dL TSH (0.270-4.20) uIU/mL Urine Color (Yellow) Urine Appearance (Clear) Urine pH (5.0-8.5) Ur Specific [place] (1.000-1.030) Urine Protein (Negative) Urine Glucose (UA) (Negative) Urine Ketones (Negative) Urine Blood (Negative) Urine Nitrite (Negative) Urine Bilirubin (Negative) Urine Urobilinogen (0.2-1.0) Ur Leukocyte Esterase (Negative) Urine RBC (0-2) Urine WBC (0-5) Ur Squamous Epith Cells (None-Few) Urine Bacteria (None) Salicylates (1.0-10) mg/dL Urine Opiates Screen (Negative) Ur Oxycodone Screen (Negative) Urine Methadone Screen (Negative) Acetaminophen (10.0-30.0) ug/mL Ur Barbiturates Screen (Negative) U Tricyclic Antidepress (Negative) Ur Phencyclidine Scrn (Negative) Ur Amphetamines Screen (Negative) U Methamphetamines Scrn (Negative) U Benzodiazepines Scrn (Negative) Urine Cocaine Screen (Negative) U Marijuana (THC) Screen (Negative) Ur Drug Screen Comment Ethyl Alcohol 0.14 H 0.02 (0.01-0.03) % SARS-CoV-2 (PCR) (Negative) Influenza Type A (PCR) (Negative) Influenza Type B (PCR) (Negative) <Mirtha Farmer MD - Last Filed: 09/09/24 08:24> Lab Results 09/07/24 09/07/24 09/07/24 Range/Units 19:45 20:05 20:05 WBC 2.78 L (4.50-11.00) K/uL RBC 4.74 (4.30-5.90) m/uL Hgb 15.4 (13.5-17.5) gm/dL Hct 43.8 (37.0-53.0) % MCV 92 (80-100) fL MCH 33 (26-34) pg MCHC 35 (32-36) gm/dL RDW Coeff of Bettina 13.7 (11.5-15.5) % Plt Count 98 L (140-440) K/uL Neut % (Auto) 55.8 (42.0-72.0) % Lymph % (Auto) 29.1 (20-44) % Elliott % (Auto) 11.5 H (0.0-11.0) % Eos % (Auto) 1.8 (0.0-7.0) % Baso % (Auto) 1.4 (0.0-3.0) % Neut # (Auto) 1.60 L (1.7-7.0) K/uL Lymph # (Auto) 0.80 L (0.90-2.90) K/uL Elliott # (Auto) 0.30 (0.00-0.90) K/UL Eos # (Auto) 0.10 (0.00-0.50) K/uL Baso # (Auto) 0.00 (0.00-0.30) K/uL Abs Immat Gran (auto) 0.00 (0.00-0.30) K/uL Imm/Tot Granulo (auto) 0.4 % D-Dimer Quant (PE/DVT) 2.87 H (0.00-0.50) ug/ml Sodium 135 (135-149) mmol/L Potassium 3.6 (3.6-5.1) mmol/L Chloride 97 (96-114) mmol/L Carbon Dioxide 21 (20-32) mmol/L Anion Gap 17 H (7-15) mEq/L BUN 5 L (7-30) mg/dL Creatinine 0.6 (0.5-1.5) mg/dL Estimated GFR 112 ml/min Glucose 110 (60-115) mg/dL Calcium 8.7 (8.4-10.6) mg/dL Magnesium (1.5-2.6) mg/dL Total Bilirubin 1.6 H (0.1-1.5) mg/dL Direct Bilirubin 0.7 H (0.0-0.5) mg/dL AST 199 H (12-35) U/L ALT 161 H (4-50) U/L Alkaline Phosphatase 96 (40-150) U/L Total Protein 7.8 (6.0-8.3) g/dL Albumin 4.6 (3.3-5.0) g/dL TSH 2.370 (0.270-4.20) uIU/mL Urine Color Yellow (Yellow) Urine Appearance Clear (Clear) Urine pH 6.5 (5.0-8.5) Ur Specific [place] 1.010 (1.000-1.030) Urine Protein Negative (Negative) Urine Glucose (UA) Negative (Negative) Urine Ketones Negative (Negative) Urine Blood Negative (Negative) Urine Nitrite Negative (Negative) Urine Bilirubin Negative (Negative) Urine Urobilinogen 1.0 (0.2-1.0) Ur Leukocyte Esterase Negative (Negative) Urine RBC 0-2 (0-2) Urine WBC 0-2 (0-5) Ur Squamous Epith Cells None (None-Few) Urine Bacteria None (None) Salicylates < 1.0 L Cancelled (1.0-10) mg/dL Urine Opiates Screen Negative (Negative) Ur Oxycodone Screen Negative (Negative) Urine Methadone Screen Negative (Negative) Acetaminophen < 10.0 L (10.0-30.0) ug/mL Ur Barbiturates Screen Negative (Negative) U Tricyclic Antidepress Negative (Negative) Ur Phencyclidine Scrn Negative (Negative) Ur Amphetamines Screen Negative (Negative) U Methamphetamines Scrn Negative (Negative) U Benzodiazepines Scrn Negative (Negative) Urine Cocaine Screen Negative (Negative) U Marijuana (THC) Screen Negative (Negative) Ur Drug Screen Comment See Note Ethyl Alcohol 0.32 H* (0.01-0.03) % SARS-CoV-2 (PCR) Negative SARS-CoV-2 (Negative) Influenza Type A (PCR) Negative PCR FLU A (Negative) Influenza Type B (PCR) Negative PCR FLU B (Negative) 09/08/24 09/08/24 09/08/24 Range/Units 06:33 12:00 13:15 WBC (4.50-11.00) K/uL RBC (4.30-5.90) m/uL Hgb (13.5-17.5) gm/dL Hct (37.0-53.0) % MCV (80-100) fL MCH (26-34) pg MCHC (32-36) gm/dL RDW Coeff of Bettina (11.5-15.5) % Plt Count (140-440) K/uL Neut % (Auto) (42.0-72.0) % Lymph % (Auto) (20-44) % Elliott % (Auto) (0.0-11.0) % Eos % (Auto) (0.0-7.0) % Baso % (Auto) (0.0-3.0) % Neut # (Auto) (1.7-7.0) K/uL Lymph # (Auto) (0.90-2.90) K/uL [place] # (Auto) (0.00-0.90) K/UL Eos # (Auto) (0.00-0.50) K/uL Baso # (Auto) (0.00-0.30) K/uL Abs Immat Gran (auto) (0.00-0.30) K/uL Imm/Tot Granulo (auto) % D-Dimer Quant (PE/DVT) (0.00-0.50) ug/ml Sodium (135-149) mmol/L Potassium (3.6-5.1) mmol/L Chloride (96-114) mmol/L Carbon Dioxide (20-32) mmol/L Anion Gap (7-15) mEq/L BUN (7-30) mg/dL Creatinine (0.5-1.5) mg/dL Estimated GFR ml/min Glucose (60-115) mg/dL Calcium (8.4-10.6) mg/dL Magnesium 1.6 (1.5-2.6) mg/dL Total Bilirubin (0.1-1.5) mg/dL Direct Bilirubin (0.0-0.5) mg/dL AST (12-35) U/L ALT (4-50) U/L Alkaline Phosphatase (40-150) U/L Total Protein (6.0-8.3) g/dL Albumin (3.3-5.0) g/dL TSH (0.270-4.20) uIU/mL Urine Color (Yellow) Urine Appearance (Clear) Urine pH (5.0-8.5) Ur Specific [place] (1.000-1.030) Urine Protein (Negative) Urine Glucose (UA) (Negative) Urine Ketones (Negative) Urine Blood (Negative) Urine Nitrite (Negative) Urine Bilirubin (Negative) Urine Urobilinogen (0.2-1.0) Ur Leukocyte Esterase (Negative) Urine RBC (0-2) Urine WBC (0-5) Ur Squamous Epith Cells (None-Few) Urine Bacteria (None) Salicylates (1.0-10) mg/dL Urine Opiates Screen (Negative) Ur Oxycodone Screen (Negative) Urine Methadone Screen (Negative) Acetaminophen (10.0-30.0) ug/mL Ur Barbiturates Screen (Negative) U Tricyclic Antidepress (Negative) Ur Phencyclidine Scrn (Negative) Ur Amphetamines Screen (Negative) U Methamphetamines Scrn (Negative) U Benzodiazepines Scrn (Negative) Urine Cocaine Screen (Negative) U Marijuana (THC) Screen (Negative) Ur Drug Screen Comment Ethyl Alcohol 0.14 H 0.02 (0.01-0.03) % SARS-CoV-2 (PCR) (Negative) Influenza Type A (PCR) (Negative) Influenza Type B (PCR) (Negative) <Cleopatra Curran MD - Last Filed: 09/08/24 08:36> Discharge Plan Discharge Patient Disposition: Xfer [facility] <Vane Sibley MD - Last Filed: 09/09/24 15:02> Prescriptions: No Action escitalopram oxalate 5 mg tablet 5 mg PO QAM quetiapine [Seroquel] 50 mg tablet 50 mg PO QHS PRN (Reason: insomnia) Qty: 6 0RF hydroxyzine HCl 25 mg tablet 25 mg PO BID PRN (Reason: anxiety) bupropion HCl 300 mg tablet extended release 24 hr 300 mg PO DAILY <Vane Sibley MD - Last Filed: 09/09/24 15:02> Stand Alone Forms: [facility] Info Instructions <Vane Sibley MD - Last Filed: 09/09/24 15:02>
[2024-09-07 19:55] LABS: Appearance Urine Clear (Clear); Bilirubin Urine Negative (Negative); Blood Urine Negative (Negative); Color Urine Yellow (Yellow); Glucose Urine Negative (Negative); Ketones Urine Negative (Negative); Leukocyte Esterase Urine Negative (Negative); Nitrite Urine Negative (Negative); Protein Urine Negative (Negative); pH Urine 6.5 (5.0-8.5)
[2024-09-07 20:03] LABS: RBC Urine 0-2 (0-2); WBC Urine 0-2 (0-5)
[2024-09-07 20:04] LABS: Amphetamine Screen Urine Negative (Negative); Barbiturate Screen Urine Negative (Negative); Benzodiazepines Screen Urine Negative (Negative); Cannabinoid Screen Urine Negative (Negative); Cocaine Screen Urine Negative (Negative); Methadone Screen Urine Negative (Negative); Methamphetamines Screen Urine Negative (Negative); Opiate Screen Urine Negative (Negative); Oxycodone Screen Urine Negative (Negative); Phencyclidine Screen Urine Negative (Negative); Tricyclic Antidepressant Urine Negative (Negative)
[2024-09-07 20:12] LABS: Basophils Percent Auto 1.4 % (0.0-3.0); Eosinophils Percent Auto 1.8 % (0.0-7.0); Hematocrit 43.8 % (37.0-53.0); Hemoglobin* 15.4 gm/dL (13.5-17.5); Immature Granulocytes Pct Auto 0.4 %; Lymphocytes Percent Auto 29.1 % (20-44); Mean Corpuscular HGB Conc 35 gm/dL (32-36); Mean Corpuscular Hemoglobin 33 pg (26-34); Mean Corpuscular Volume 92 fL (80-100); Monocytes Percent Auto 11.5 % (0.0-11.0); Neutrophils Percent Auto 55.8 % (42.0-72.0); Platelet Count* 98 K/uL (140-440); RDW Coefficient of Variation % 13.7 % (11.5-15.5); Red Blood Count 4.74 m/uL (4.30-5.90); White Blood Count* 2.78 K/uL (4.50-11.00)
[2024-09-07 20:16] LABS: Slide Review Reflex No
[2024-09-07 20:28] LABS: Albumin* 4.6 g/dL (3.3-5.0); Chloride* 97 mmol/L (96-114); Potassium* 3.6 mmol/L (3.6-5.1); Sodium* 135 mmol/L (135-149)
[2024-09-07 20:30] LABS: Bilirubin Direct* 0.7 mg/dL (0.0-0.5); Bilirubin Total* 1.6 mg/dL (0.1-1.5); Blood Urea Nitrogen* 5 mg/dL (7-30); Carbon Dioxide* 21 mmol/L (20-32); Creatinine* 0.6 mg/dL (0.5-1.5); Estimated Glomerular Filt Rate 112 ml/min
[2024-09-07 20:31] LABS: PCR FLU A Negative PCR FLU A (Negative); PCR FLU B Negative PCR FLU B (Negative); SARS PCR* Negative SARS-CoV-2 (Negative)
[2024-09-07 20:31] LABS: Alanine Aminotransferase* 161 U/L (4-50); Alkaline Phosphatase* 96 U/L (40-150); Anion Gap 17 mEq/L (7-15); Aspartate Amino Transferase* 199 U/L (12-35); Calcium* 8.7 mg/dL (8.4-10.6); Glucose* 110 mg/dL (60-115); Total Protein* 7.8 g/dL (6.0-8.3)
[2024-09-07 20:32] LABS: D Dimer Quantitative* 2.87 ug/ml (0.00-0.50)
[2024-09-07 20:36] LABS: Acetaminophen* < 10.0 ug/mL (10.0-30.0); Salicylate* < 1.0 mg/dL (1.0-10)
[2024-09-07 20:49] LABS: Ethanol* 0.32 % (0.01-0.03)
[2024-09-07] MEDS: 0.9 % SODIUM CHLORIDE 1000 ml 1,000 ML IV (22:37)
[2024-09-07 22:42] VITALS: BP 118/68; PULSE 86; RESP 20; O2SAT 94
[2024-09-07] MEDS: LORazepam 2 MG/ML inj 1 MG IVP (23:43)
[2024-09-07 23:45] VITALS: BP 120/71; PULSE 94; RESP 20; TEMP 37.3; O2SAT 93
[2024-09-07 23:49] VITALS: BP 120/71; PULSE 93; O2SAT 92
[2024-09-07 23:50] VITALS: PULSE 95; O2SAT 92
[2024-09-08] VITALS (88 sets, daily range): BP systolic 103–177; BP diastolic 64–133; PULSE 82–121; RESP 12–20; TEMP 36.6; O2SAT 80–100
[2024-09-08] MEDS: PHENOBARBITAL IVPB (04:08)
[2024-09-08] MEDS: SODIUM CHLORIDE 0.9% IVPB (04:08)
[2024-09-08] MEDS: LORazepam 2 MG/ML inj 1 MG IVP ×3 (04:13→19:42)
[2024-09-08] MEDS: LORazepam 1 MG TABLET PO ×4 (06:12→21:46)
--- NOTE | 2024-09-08 06:12 | ED.NURSE ---
Pt wanted this nurse to note that his Lexapro makes him shake on his right hand side of his body.
--- NOTE | 2024-09-08 06:23 | ED.NURSE ---
Pt up to the bathroom, walking with this nurse walking beside him, gait still a bit unsteady.
[2024-09-08 07:06] LABS: Ethanol* 0.14 % (0.01-0.03)
[2024-09-08] MEDS: ESCITALOPRAM 10 MG TABLET 5 MG PO (10:49)
[2024-09-08 13:37] LABS: Ethanol* 0.02 % (0.01-0.03)
[2024-09-08] MEDS: ONDANSETRON 2 MG/ML inj 4 MG IVP ×2 (14:26→17:42)
[2024-09-08] MEDS: 5 % DEXTROSE/0.45% SOD CHLOR 1,000 ML 125 ML IV ×2 (14:31→22:44)
[2024-09-08] MEDS: THIAMINE 250 MG in 0.9 % SODIUM CHLORIDE 100 ml 100 ML 102.5 MG IVPB (14:31)
[2024-09-08 15:18] LABS: Magnesium* 1.6 mg/dL (1.5-2.6)
[2024-09-08] MEDS: MAGNESIUM IV 2 GM/50 ML PIGGYBACK IVPB (15:54)
[2024-09-08] MEDS: QUETIAPINE 25 MG TABLET 50 MG PO (21:46)
--- NOTE | 2024-09-09 03:16 | ED.NURSE ---
Pt up and down to the bathroom independently, walking with a steady gait.
[2024-09-09] MEDS: LORazepam 1 MG TABLET PO (03:53)
--- NOTE | 2024-09-09 07:36 | ED.NURSE ---
Pt's breakfast has been ordered 09/09/24, 3931.
[2024-09-09] MEDS: ESCITALOPRAM 10 MG TABLET 5 MG PO (08:32)
[2024-09-09 09:30] VITALS: BP 130/84; PULSE 84; RESP 18; TEMP 37
== END 2024-09-09 09:34 ==
PROVIDERS: Emergency Medicine; Family Medicine; Emergency Provider Family Medicine; PCP Internal Medicine
DX: R45.851 Suicidal ideations (principal)
CPT/HCPCS: 36415; 80048; 80076; 80143; 80179; 80306; 81001; 82077; 83735; 84443; 85025; 85379; 87631; 96365; 96375; 99285; Q3014; A9270; J2060; J2405; J2560; J3411; J3475; J7030; S5010

== ENCOUNTER 2024-09-09 09:01 | Outpatient (CLI) | payer BC, SELFPAY | END 2024-09-09 09:02 | disposition home or self-care (01) | LOC: AMB 09-10 14:39 | PROVIDERS: PCP Internal Medicine; Visit Provider Internal Medicine | DX: F32.A Depression, unspecified (principal); R45.851 Suicidal ideations | CPT/HCPCS: A0425; A0428 ==